=== PATIENT | female | born 1955 | race African-American/Black ===

== ENCOUNTER 2016-05-15 11:33 | Inpatient (IN) | payer OTHER ==
[2016-05-15 14:36] VITALS: BMI 29.2
--- NOTE | 2016-05-15 15:04 | HP ---
Admission [facility] - [facility] Chief Complaint: I drink occasionally and need to go to rehab. Allergies/Adverse Reactions: Allergies Allergy/AdvReac Type Severity Reaction Status Date / Time No Known Allergies Allergy Verified 05/15/16 14:51 History of Present Illness: pt is a 60yr old female with a history of alcohol abuse seeking rehab for treatment. Exam Limitations: No Limitations - Ebola screening Have you traveled outside of the country in the last 21 days: No Have you had contact with anyone from an Ebola affected area: No Have you been sick,other than usual withdrawal symptoms: No Do you have a fever: No - Review of Systems Constitutional: No Symptoms Reported EENT: reports: Other (vision changes d/t stroke d 4 yrs ago) Respiratory: reports: No Symptoms reported Cardiac: reports: No Symptoms Reported GI: reports: No Symptoms Reported : reports: No Symptoms Reported Musculoskeletal: reports: Back Pain, Joint Pain, Muscle Pain Integumentary: reports: No Symptoms Reported Neuro: reports: Tingling, Tremors Endocrine: reports: No Symptoms Reported, Flushing Hematology: reports: Anemia Psychiatric: reports: Judgement Intact, Mood/Affect Appropiate, Orientated x3, Agitated, Anxious Other Systems: Reviewed and Negative Patient History - Patient Medical History Hx Anemia: Yes Hx Asthma: No Hx Chronic Obstructive Pulmonary Disease (COPD): No Hx Cancer: No Hx Cardiac Disorders: Yes Hx Congestive Heart Failure: No Hx Hypertension: Yes Hx Hypercholesterolemia: Yes Hx Pacemaker: No HX Cerebrovascular Accident: Yes (LEFT SIDE AFFECTED) Hx Seizures: Yes (couple of months ago) Hx Dementia: No Hx Diabetes: No Hx Gastrointestinal Disorders: No Hx Liver Disease: No Hx Genitourinary Disorders: No Hx Sexually Transmitted Disorders: No Hx Renal Disease (ESRD): No Hx Thyroid Disease: No Hx Human Immunodeficiency Virus (HIV): No Hx Hepatitis C: No Hx Depression: No Hx Suicide Attempt: No Hx Bipolar Disorder: No Hx Schizophrenia: No - Patient Surgical History Past Surgical History: Yes Hx Neurologic Surgery: No Hx Cataract Extraction: No Hx Cardiac Surgery: No Hx Lung Surgery: No Hx Breast Surgery: No Hx Breast Biopsy: No Hx Abdominal Surgery: No Hx Appendectomy: No Hx Cholecystectomy: No Hx Genitourinary Surgery: No Hx Section: No Hx Orthopedic Surgery: No Hx Hysterectomy: No Other Surgical History: LEFT CAROTIC STENT 2013 Anesthesia Reaction: No - PPD History Previous Implant?: Yes Date: 12/01/15 PPD to be Administered?: No - Reproductive History Patient is a Female of Child Bearing Age (11 -55 yrs old): No - Smoking Cessation Smoking history: Current every day smoker Have you smoked in the past 12 months: Yes Aproximately how many cigarettes per day: 2 Hx Chewing Tobacco Use: No Initiated information on smoking cessation: Yes 'Breaking Loose' booklet given: 05/15/16 - Substance & Tx. History Hx Alcohol Use: Yes Substance Use Type: Alcohol Family Disease History - Family Disease History Family Disease History: Diabetes: Father, Heart Disease: Mother, CA: Brother ( THROAT ), Sister (LUNG ) Admission Physical Exam [facility] - Vital Signs Vital Signs: Vital Signs - 24 hr 05/15/16 14:35 Temperature 97.8 F Pulse Rate 86 Respiratory 18 Rate Blood Pressure 128/75 - Physical General Appearance: Yes: Appropriately Dressed, Moderate Distress, Tremorous, Irritable, Sweating, Anxious HEENTM: Yes: Hearing grossly Normal, Normal Voice Respiratory: Yes: Lungs Clear, Normal Breath Sounds, No Respiratory Distress Neck: Yes: No masses,lesions,Nodules Breast: Yes: Within Normal Limits Cardiology: Yes: Regular Rhythm, Regular Rate, S1, S2 Abdominal: Yes: Normal Bowel Sounds Genitourinary: Yes: Within Normal Limits Back: Yes: Normal Inspection Musculoskeletal: Yes: Gait Steady Extremities: Yes: Normal Capillary Refill, Normal Inspection Neurological: Yes: Fully Oriented, Alert, Other (left sided weakness) Integumentary: Yes: Within Normal Limits Lymphatic: Yes: Within Normal Limits Cleared for Admission [facility] - Detox or Rehab [facility] Level of Care: Medically Managed Claeared for Rehab Admission: Yes [facility] Breath Alcohol Content Breath Alcohol Content: 0 Urine Pregancy Test - Result Urine Test Results: Negative- NO Line Present Urine Drug Screen - Results Urine Drug Screen Results: THC-Marijuana, BAR-Barbiturates
[2016-05-15] MEDS ORDERED: guaiFENesin/D-METHORPHAN HB 10 ML UNIT-DOSE CUPS PO PRN (15:09)
[2016-05-15] MEDS ORDERED: MAG HYDROX/AL HYDROX/SIMETH 30 ML UNIT-DOSE CUP PO PRN (15:09)
[2016-05-15] MEDS ORDERED: LOPERAMIDE HCL 2 MG CAPSULE PO PRN (15:09)
[2016-05-15] MEDS ORDERED: NICOTINE POLACRILEX 4 MG GUM BUC PRN (15:09)
[2016-05-15] MEDS ORDERED: IBUPROFEN 400 MG TABLET (FP) PO PRN (15:09)
[2016-05-15] MEDS ORDERED: MAGNESIUM HYDROX 2400MG/30ML ORAL SUSPENSION 30 ML CUP PO PRN (15:09)
[2016-05-15] MEDS ORDERED: hydrOXYzine PAMOATE 50 MG CAPSULE (FP) PO PRN (15:09)
[2016-05-15] MEDS ORDERED: MAGNESIUM CITRATE 300 ML BOTTLE PO PRN (15:09)
[2016-05-15] MEDS ORDERED: MENTHOL/PHENOL 1 EACH UD MM PRN (15:09)
[2016-05-15 16:50] LABS: MCH 31.4 pg (25.7-33.7); MCHC 33.7 g/dl (32.0-36.0); MEAN CELL VOLUME 93.1 fl (80-96); MEAN PLT VOLUME 8.4 fl (7.5-11.1); PLATELET COUNT 326 K/MM3 (134-434); RDW 13.2 % (11.6-15.6); WHITE BLOOD COUNT 5.2 K/mm3 (4.0-10.0)
[2016-05-15 17:46] LABS: CALCIUM 8.9 mg/dL (8.5-10.1)
[2016-05-15 17:52] LABS: ALBUMIN 3.8 g/dl (3.4-5.0); ALK PHOS 113 U/L (45-117); ANION GAP 9 (8-16); BILIRUBIN,TOTAL 0.2 mg/dL (0.2-1.0); CO2 29 mmol/L (21-32); CREATININE 0.8 mg/dL (0.55-1.02); GLUCOSE,RANDOM 66 mg/dL (74-106); SGOT/AST 59 U/L (15-37); SGPT/ALT 45 U/L (12-78); TOT PROT 7.3 g/dl (6.4-8.2)
[2016-05-15] MEDS: NAPROXEN 500 MG TABLET (FP) PO SCH (21:36)
[2016-05-15] MEDS: PHENYTOIN NA EXTENDED 100 MG CAPSULE (FP) PO SCH (21:36)
[2016-05-15] MEDS: THIAMINE HCL 100 MG TABLET (FP) PO SCH (21:36)
[2016-05-16] MEDS: PHENYTOIN NA EXTENDED 100 MG CAPSULE (FP) PO SCH ×3 (06:23→21:41)
--- NOTE | 2016-05-16 08:38 | HP ---
Psychiatrist Admission - Data Date of interview: 05/16/16 Admission source: [facility] Identifying data: This is the second admission to [address] [place] [address] for this 60yr old female. Single. 6 grown children. She lives by herself in an apartment on [address]. Pt is on disability post stroke 4yrs ago. Medical History: PMHx: HTN, cerebral infarction (~2010), arthritis, hyperlipidemia. Psychiatric History: Pt was diagnosed with depression last year by her primary care doctor Dr. Dodd.No psychiatric treatment.No psychiatric admissions,no suicidal attempts. Physical/Sexual Abuse/Trauma History: denies Vital Signs: Vital Signs - 24 hr 05/15/16 05/16/16 05/16/16 14:35 00:30 03:30 Temperature 97.8 F Pulse Rate 86 Respiratory 18 18 18 Rate Blood Pressure 128/75 05/16/16 06:51 Temperature 98.0 F Pulse Rate 89 Respiratory 18 Rate Blood Pressure 119/79 Allergies/Adverse Reactions: Allergies Allergy/AdvReac Type Severity Reaction Status Date / Time No Known Allergies Allergy Verified 05/15/16 14:51 Date of last physical exam: 05/16/16 Concur with the findings of this exam: Yes - Substance Abuse/Tx History Hx Alcohol Use: Yes (reports drinking since 16 yo,3-4 days a week,vodka ) Hx Substance Use: Yes (marijuana on and off once a year) Substance Use Type: Alcohol, Marijuana Hx Substance Use Treatment: Yes (completed this program 2013) - Admission Criteria Previous failed treatment: Yes Poor recovery environment: Yes Comorbidities: Yes Lacks judgement: Yes Mental Status Exam - Mental Status Exam Alert and Oriented to: Time, Place, Person Cognitive Function: Grossly Intact Patient Appearance: Unkempt Mood: Sad, Anxious Affect: Mood Congruent, Labile Patient Behavior: Cooperative Speech Pattern: Clear Voice Loudness: Normal Thought Process: Goal Oriented Hallucinations: Denies Suicidal Ideation: Denies Homicidal Ideation: Denies Insight/Judgement: Fair Sleep: Well Appetite: Good Muscle strength/Tone: Normal Gait/Station: Other (gait instability) Psychiatric Findings - Problem List (Ranson 1, 2,3) (1) Chronic back pain Current Visit: Yes Status: Chronic Qualifiers: Back pain location: back pain in unspecified location Back pain laterality: left Qualified Code(s): M54.9 - Dorsalgia, unspecified; G89.29 - Other chronic pain (2) Hypertension Current Visit: Yes Status: Chronic Qualifiers: Hypertension type: essential hypertension Qualified Code(s): I10 - Essential (primary) hypertension (3) Nicotine dependence Current Visit: Yes Status: Chronic Qualifiers: Nicotine product type: cigarettes Substance use status: uncomplicated Qualified Code(s): F17.210 - Nicotine dependence, cigarettes, uncomplicated (4) Alcohol dependence Current Visit: Yes Status: Chronic (5) Hyperlipidemia Current Visit: Yes Status: Chronic (6) Cerebral infarct Current Visit: Yes Status: Inactive - Initial Treatment Plan Initial Treatment Plan: Will monitor progress.
[2016-05-16] MEDS ORDERED: PT OWN MED DRAWER 7, Y5N ONE ×2 (09:12→21:43)
[2016-05-16] MEDS: PRENATAL VITAMINS W/ FOLIC ACID TABLET (FP) PO SCH (09:26)
[2016-05-16] MEDS: NAPROXEN 500 MG TABLET (FP) PO SCH ×2 (09:26→21:41)
[2016-05-16] MEDS: TRIAMTERENE AND HCTZ - 37.5 MG/25 MG CAPSULE PO SCH (09:29)
[2016-05-16] MEDS ORDERED: METOPROLOL SUCCINATE 100 MG TAB.SR.24H (FP) PO SCH (10:00)
[2016-05-16] MEDS ORDERED: amLODIPine BESYLATE 10 MG TABLET (FP) PO SCH (10:00)
[2016-05-16 10:11] LABS: HIV 1 & 2 AB NEGATIVE; HIV 1 AGp24 NEGATIVE
[2016-05-16] MEDS: METHYL SALICYLATE/MENTHOL OINT 30 GM TUBE TP SCH ×2 (15:20→21:43)
[2016-05-16 16:25] LABS: URINE APPEARANCE CLOUDY; URINE BILIRUBIN NEGATIVE (NEGATIVE); URINE BLOOD NEGATIVE (NEGATIVE); URINE COLOR DKYELLOW; URINE GLUCOSE (UA) NEGATIVE (NEGATIVE); URINE KETONE NEGATIVE (NEGATIVE); URINE LEUK ESTERASE NEGATIVE (NEGATIVE); URINE NITRITE NEGATIVE (NEGATIVE); URINE PROTEIN NEGATIVE (NEGATIVE); URINE UROBILINOGEN NEGATIVE E.U./dl (0.2-1.0)
--- NOTE | 2016-05-16 16:42 | EKG ---
Test Reason : Blood Pressure : / mmHG Vent. Rate : 092 BPM Atrial Rate : 092 BPM P-R Int : 190 ms QRS Dur : 078 ms QT Int : 378 ms P-R-T Axes : 071 003 072 degrees QTc Int : 467 ms NORMAL SINUS RHYTHM NORMAL ECG WHEN COMPARED WITH ECG OF 22-MAR-2012 11:31, NO SIGNIFICANT CHANGE WAS FOUND Confirmed by MD JOY, MELIDA ([id number]) on 05/16/2016 4:42:35 PM Referred By: Confirmed By:MELIDA HAMILTON MD
[2016-05-16] MEDS: THIAMINE HCL 100 MG TABLET (FP) PO SCH (21:41)
[2016-05-17] MEDS: PHENYTOIN NA EXTENDED 100 MG CAPSULE (FP) PO SCH ×3 (06:22→21:33)
[2016-05-17] MEDS: METHYL SALICYLATE/MENTHOL OINT 30 GM TUBE TP SCH ×2 (10:13→21:34)
[2016-05-17] MEDS: TRIAMTERENE AND HCTZ - 37.5 MG/25 MG CAPSULE PO SCH (10:14)
[2016-05-17] MEDS ORDERED: PT OWN MED DRAWER 7, Y5N ONE ×2 (10:14→20:25)
[2016-05-17] MEDS: amLODIPine BESYLATE 5 MG TABLET (FP) PO SCH (10:15)
[2016-05-17] MEDS: NAPROXEN 500 MG TABLET (FP) PO SCH ×2 (10:15→21:32)
[2016-05-17] MEDS: METOPROLOL SUCCINATE 50 MG TAB.SR.24H (FP) PO SCH (10:15)
[2016-05-17] MEDS: PRENATAL VITAMINS W/ FOLIC ACID TABLET (FP) PO SCH (10:15)
[2016-05-17] MEDS: THIAMINE HCL 100 MG TABLET (FP) PO SCH (21:33)
[2016-05-18] MEDS: PHENYTOIN NA EXTENDED 100 MG CAPSULE (FP) PO SCH ×3 (06:34→21:27)
[2016-05-18] MEDS ORDERED: PT OWN MED DRAWER 7, Y5N ONE ×2 (08:29→20:35)
[2016-05-18] MEDS: METHYL SALICYLATE/MENTHOL OINT 30 GM TUBE TP SCH ×2 (09:54→21:28)
[2016-05-18] MEDS: PRENATAL VITAMINS W/ FOLIC ACID TABLET (FP) PO SCH (09:55)
[2016-05-18] MEDS: METOPROLOL SUCCINATE 50 MG TAB.SR.24H (FP) PO SCH (09:55)
[2016-05-18] MEDS: NAPROXEN 500 MG TABLET (FP) PO SCH ×2 (09:55→21:27)
[2016-05-18] MEDS: TRIAMTERENE AND HCTZ - 37.5 MG/25 MG CAPSULE PO SCH (09:55)
[2016-05-18] MEDS: amLODIPine BESYLATE 5 MG TABLET (FP) PO SCH (09:55)
[2016-05-18] MEDS: THIAMINE HCL 100 MG TABLET (FP) PO SCH (21:27)
[2016-05-18] MEDS: diphenhydrAMINE HCL 50 MG CAPSULE PO PRN (21:27)
[2016-05-19] MEDS: PHENYTOIN NA EXTENDED 100 MG CAPSULE (FP) PO SCH ×3 (06:37→21:42)
[2016-05-19] MEDS: METOPROLOL SUCCINATE 50 MG TAB.SR.24H (FP) PO SCH (10:23)
[2016-05-19] MEDS: NAPROXEN 500 MG TABLET (FP) PO SCH ×2 (10:23→21:42)
[2016-05-19] MEDS: PRENATAL VITAMINS W/ FOLIC ACID TABLET (FP) PO SCH (10:23)
[2016-05-19] MEDS: amLODIPine BESYLATE 5 MG TABLET (FP) PO SCH (10:23)
[2016-05-19] MEDS: METHYL SALICYLATE/MENTHOL OINT 30 GM TUBE TP SCH ×2 (10:24→21:43)
[2016-05-19] MEDS: TRIAMTERENE AND HCTZ - 37.5 MG/25 MG CAPSULE PO SCH (10:53)
[2016-05-19] MEDS: P-EPHED 60MG/TRIPROLIDI 2.5MG TABLET PO PRN (14:53)
[2016-05-19] MEDS: THIAMINE HCL 100 MG TABLET (FP) PO SCH (21:42)
[2016-05-20] MEDS: PHENYTOIN NA EXTENDED 100 MG CAPSULE (FP) PO SCH ×3 (06:44→21:40)
[2016-05-20] MEDS ORDERED: PT OWN MED DRAWER 7, Y5N ONE ×2 (08:41→21:42)
[2016-05-20] MEDS: METHYL SALICYLATE/MENTHOL OINT 30 GM TUBE TP SCH ×2 (10:34→21:42)
[2016-05-20] MEDS: METOPROLOL SUCCINATE 50 MG TAB.SR.24H (FP) PO SCH (10:35)
[2016-05-20] MEDS: NAPROXEN 500 MG TABLET (FP) PO SCH ×2 (10:35→21:40)
[2016-05-20] MEDS: amLODIPine BESYLATE 5 MG TABLET (FP) PO SCH (10:35)
[2016-05-20] MEDS: PRENATAL VITAMINS W/ FOLIC ACID TABLET (FP) PO SCH (10:35)
[2016-05-20] MEDS: TRIAMTERENE AND HCTZ - 37.5 MG/25 MG CAPSULE PO SCH (10:35)
[2016-05-20] MEDS: diphenhydrAMINE HCL 50 MG CAPSULE PO PRN (21:40)
[2016-05-20] MEDS: THIAMINE HCL 100 MG TABLET (FP) PO SCH (21:40)
[2016-05-21] MEDS: PHENYTOIN NA EXTENDED 100 MG CAPSULE (FP) PO SCH ×3 (06:42→21:38)
[2016-05-21] MEDS: METHYL SALICYLATE/MENTHOL OINT 30 GM TUBE TP SCH ×2 (10:37→21:37)
[2016-05-21] MEDS: amLODIPine BESYLATE 5 MG TABLET (FP) PO SCH (10:37)
[2016-05-21] MEDS: NAPROXEN 500 MG TABLET (FP) PO SCH ×2 (10:37→21:38)
[2016-05-21] MEDS: TRIAMTERENE AND HCTZ - 37.5 MG/25 MG CAPSULE PO SCH (10:37)
[2016-05-21] MEDS: METOPROLOL SUCCINATE 50 MG TAB.SR.24H (FP) PO SCH (10:38)
[2016-05-21] MEDS: PRENATAL VITAMINS W/ FOLIC ACID TABLET (FP) PO SCH (10:38)
[2016-05-21] MEDS ORDERED: PT OWN MED DRAWER 7, Y5N ONE (20:46)
[2016-05-21] MEDS: THIAMINE HCL 100 MG TABLET (FP) PO SCH (21:38)
[2016-05-22] MEDS: PHENYTOIN NA EXTENDED 100 MG CAPSULE (FP) PO SCH ×3 (06:34→21:26)
[2016-05-22] MEDS ORDERED: PT OWN MED DRAWER 7, Y5N ONE ×2 (08:40→20:28)
[2016-05-22] MEDS: METHYL SALICYLATE/MENTHOL OINT 30 GM TUBE TP SCH ×2 (10:35→21:26)
[2016-05-22] MEDS: PRENATAL VITAMINS W/ FOLIC ACID TABLET (FP) PO SCH (10:36)
[2016-05-22] MEDS: TRIAMTERENE AND HCTZ - 37.5 MG/25 MG CAPSULE PO SCH (10:36)
[2016-05-22] MEDS: amLODIPine BESYLATE 5 MG TABLET (FP) PO SCH (10:36)
[2016-05-22] MEDS: METOPROLOL SUCCINATE 50 MG TAB.SR.24H (FP) PO SCH (10:36)
[2016-05-22] MEDS: NAPROXEN 500 MG TABLET (FP) PO SCH ×2 (10:36→21:26)
[2016-05-22] MEDS: P-EPHED 60MG/TRIPROLIDI 2.5MG TABLET PO PRN (14:53)
[2016-05-22] MEDS: THIAMINE HCL 100 MG TABLET (FP) PO SCH (21:26)
[2016-05-23] MEDS: PHENYTOIN NA EXTENDED 100 MG CAPSULE (FP) PO SCH ×3 (07:17→21:31)
[2016-05-23] MEDS ORDERED: PT OWN MED DRAWER 7, Y5N ONE ×2 (10:20→19:50)
[2016-05-23] MEDS: TRIAMTERENE AND HCTZ - 37.5 MG/25 MG CAPSULE PO SCH (10:21)
[2016-05-23] MEDS: amLODIPine BESYLATE 5 MG TABLET (FP) PO SCH (10:21)
[2016-05-23] MEDS: PRENATAL VITAMINS W/ FOLIC ACID TABLET (FP) PO SCH (10:21)
[2016-05-23] MEDS: NAPROXEN 500 MG TABLET (FP) PO SCH ×2 (10:21→21:31)
[2016-05-23] MEDS: METOPROLOL SUCCINATE 50 MG TAB.SR.24H (FP) PO SCH (10:21)
[2016-05-23] MEDS: METHYL SALICYLATE/MENTHOL OINT 30 GM TUBE TP SCH ×2 (10:22→21:31)
[2016-05-23] MEDS: P-EPHED 60MG/TRIPROLIDI 2.5MG TABLET PO PRN (13:34)
[2016-05-23] MEDS: THIAMINE HCL 100 MG TABLET (FP) PO SCH (21:31)
[2016-05-24] MEDS: PHENYTOIN NA EXTENDED 100 MG CAPSULE (FP) PO SCH ×3 (07:06→21:47)
[2016-05-24] MEDS: PRENATAL VITAMINS W/ FOLIC ACID TABLET (FP) PO SCH (10:20)
[2016-05-24] MEDS: METHYL SALICYLATE/MENTHOL OINT 30 GM TUBE TP SCH ×2 (10:20→21:50)
[2016-05-24] MEDS: TRIAMTERENE AND HCTZ - 37.5 MG/25 MG CAPSULE PO SCH (10:20)
[2016-05-24] MEDS: amLODIPine BESYLATE 5 MG TABLET (FP) PO SCH (10:20)
[2016-05-24] MEDS: NAPROXEN 500 MG TABLET (FP) PO SCH ×2 (10:20→21:48)
[2016-05-24] MEDS: METOPROLOL SUCCINATE 50 MG TAB.SR.24H (FP) PO SCH (10:20)
[2016-05-24] MEDS: THIAMINE HCL 100 MG TABLET (FP) PO SCH (21:47)
[2016-05-24] MEDS ORDERED: PT OWN MED DRAWER 7, Y5N ONE (21:50)
[2016-05-25] MEDS: PHENYTOIN NA EXTENDED 100 MG CAPSULE (FP) PO SCH ×3 (07:03→21:32)
[2016-05-25] MEDS: amLODIPine BESYLATE 5 MG TABLET (FP) PO SCH (10:22)
[2016-05-25] MEDS: METOPROLOL SUCCINATE 50 MG TAB.SR.24H (FP) PO SCH (10:22)
[2016-05-25] MEDS: TRIAMTERENE AND HCTZ - 37.5 MG/25 MG CAPSULE PO SCH (10:22)
[2016-05-25] MEDS: NAPROXEN 500 MG TABLET (FP) PO SCH ×2 (10:22→21:31)
[2016-05-25] MEDS: PRENATAL VITAMINS W/ FOLIC ACID TABLET (FP) PO SCH (10:22)
[2016-05-25] MEDS: METHYL SALICYLATE/MENTHOL OINT 30 GM TUBE TP SCH ×2 (10:23→22:02)
[2016-05-25] MEDS: P-EPHED 60MG/TRIPROLIDI 2.5MG TABLET PO PRN (10:23)
[2016-05-25] MEDS: THIAMINE HCL 100 MG TABLET (FP) PO SCH (21:31)
[2016-05-25] MEDS ORDERED: PT OWN MED DRAWER 7, Y5N ONE (21:33)
[2016-05-26] MEDS: PHENYTOIN NA EXTENDED 100 MG CAPSULE (FP) PO SCH ×3 (06:39→21:22)
[2016-05-26] MEDS ORDERED: PT OWN MED DRAWER 7, Y5N ONE ×2 (08:55→20:17)
[2016-05-26] MEDS: NAPROXEN 500 MG TABLET (FP) PO SCH ×2 (09:12→21:22)
[2016-05-26] MEDS: METOPROLOL SUCCINATE 50 MG TAB.SR.24H (FP) PO SCH (10:33)
[2016-05-26] MEDS: METHYL SALICYLATE/MENTHOL OINT 30 GM TUBE TP SCH ×2 (10:33→21:22)
[2016-05-26] MEDS: PRENATAL VITAMINS W/ FOLIC ACID TABLET (FP) PO SCH (10:33)
[2016-05-26] MEDS: TRIAMTERENE AND HCTZ - 37.5 MG/25 MG CAPSULE PO SCH (10:34)
[2016-05-26] MEDS: amLODIPine BESYLATE 5 MG TABLET (FP) PO SCH (10:34)
[2016-05-26] MEDS: ACETAMINOPHEN 325 MG TABLET (FP) PO PRN (14:35)
[2016-05-26] MEDS ORDERED: CYCLOBENZAPRINE HCL 10 MG TABLET (FP) PO ONE (17:40)
--- NOTE | 2016-05-26 17:44 | PN ---
[facility] Progress Note Note: RECEIVED NURSE CALL PATIENT HAS 8/10 MOBILE PAIN SINCE EARLY TODAY, ABLE TO PARTICIPATE DAILY ROUTINE AND MEETING VITAL SIGNS 132/78, AP 73 18 TEMP 98.5, NO SIGNIFICANT ECG CHANGE FLEXERIL 10 MG X 1 CONTINUE REHAB
[2016-05-26] MEDS: THIAMINE HCL 100 MG TABLET (FP) PO SCH (21:22)
[2016-05-27] MEDS: PHENYTOIN NA EXTENDED 100 MG CAPSULE (FP) PO SCH ×3 (07:14→21:34)
[2016-05-27] MEDS: NAPROXEN 500 MG TABLET (FP) PO SCH ×2 (10:22→21:34)
[2016-05-27] MEDS: PRENATAL VITAMINS W/ FOLIC ACID TABLET (FP) PO SCH (10:22)
[2016-05-27] MEDS: METOPROLOL SUCCINATE 50 MG TAB.SR.24H (FP) PO SCH (10:22)
[2016-05-27] MEDS: TRIAMTERENE AND HCTZ - 37.5 MG/25 MG CAPSULE PO SCH (10:22)
[2016-05-27] MEDS: METHYL SALICYLATE/MENTHOL OINT 30 GM TUBE TP SCH ×2 (10:22→21:34)
[2016-05-27] MEDS: amLODIPine BESYLATE 5 MG TABLET (FP) PO SCH (10:22)
--- NOTE | 2016-05-27 11:07 | EKG ---
Test Reason : Blood Pressure : / mmHG Vent. Rate : 074 BPM Atrial Rate : 074 BPM P-R Int : 192 ms QRS Dur : 076 ms QT Int : 374 ms P-R-T Axes : 063 026 070 degrees QTc Int : 415 ms NORMAL SINUS RHYTHM NORMAL ECG WHEN COMPARED WITH ECG OF 15-MAY-2016 19:23, NO SIGNIFICANT CHANGE WAS FOUND Confirmed by MARIA ELENA MORENO MD ([id number]) on 05/27/2016 11:07:21 AM Referred By: Confirmed By:MARIA ELENA MORENO MD
[2016-05-27] MEDS: ACETAMINOPHEN 325 MG TABLET (FP) PO PRN (12:55)
--- NOTE | 2016-05-27 14:25 | PN ---
[facility] Progress Note Note: Laboratory Results - last 24 hr 05/27/16 07:00 Phenytoin 8.3 L Dilantin level is below therapeutic level P : dilantin 200mg stat
[2016-05-27] MEDS ORDERED: PHENYTOIN NA EXTENDED 100 MG CAPSULE (FP) PO ONE (14:53)
[2016-05-27] MEDS: CYCLOBENZAPRINE HCL 10 MG TABLET (FP) PO SCH ×2 (15:04→21:34)
[2016-05-27] MEDS ORDERED: PT OWN MED DRAWER 7, Y5N ONE (20:30)
[2016-05-27] MEDS: THIAMINE HCL 100 MG TABLET (FP) PO SCH (21:34)
[2016-05-28] MEDS: CYCLOBENZAPRINE HCL 10 MG TABLET (FP) PO SCH ×3 (06:27→21:32)
[2016-05-28] MEDS: PHENYTOIN NA EXTENDED 100 MG CAPSULE (FP) PO SCH ×3 (06:27→21:33)
[2016-05-28] MEDS: PRENATAL VITAMINS W/ FOLIC ACID TABLET (FP) PO SCH (11:02)
[2016-05-28] MEDS: amLODIPine BESYLATE 5 MG TABLET (FP) PO SCH (11:03)
[2016-05-28] MEDS: NAPROXEN 500 MG TABLET (FP) PO SCH ×2 (11:03→21:34)
[2016-05-28] MEDS: METHYL SALICYLATE/MENTHOL OINT 30 GM TUBE TP SCH ×2 (11:03→21:34)
[2016-05-28] MEDS: TRIAMTERENE AND HCTZ - 37.5 MG/25 MG CAPSULE PO SCH (11:03)
[2016-05-28] MEDS: METOPROLOL SUCCINATE 50 MG TAB.SR.24H (FP) PO SCH (11:03)
[2016-05-28] MEDS ORDERED: PT OWN MED DRAWER 7, Y5N ONE (11:04)
[2016-05-28] MEDS: diphenhydrAMINE HCL 50 MG CAPSULE PO PRN (21:33)
[2016-05-28] MEDS: THIAMINE HCL 100 MG TABLET (FP) PO SCH (21:33)
[2016-05-29] MEDS: CYCLOBENZAPRINE HCL 10 MG TABLET (FP) PO SCH ×3 (06:54→21:33)
[2016-05-29] MEDS: PHENYTOIN NA EXTENDED 100 MG CAPSULE (FP) PO SCH ×3 (06:54→21:33)
[2016-05-29] MEDS ORDERED: PT OWN MED DRAWER 7, Y5N ONE ×2 (08:38→21:36)
[2016-05-29] MEDS: PRENATAL VITAMINS W/ FOLIC ACID TABLET (FP) PO SCH (10:36)
[2016-05-29] MEDS: NAPROXEN 500 MG TABLET (FP) PO SCH ×2 (10:36→21:33)
[2016-05-29] MEDS: METHYL SALICYLATE/MENTHOL OINT 30 GM TUBE TP SCH ×2 (10:36→21:35)
[2016-05-29] MEDS: amLODIPine BESYLATE 5 MG TABLET (FP) PO SCH (10:37)
[2016-05-29] MEDS: TRIAMTERENE AND HCTZ - 37.5 MG/25 MG CAPSULE PO SCH (10:37)
[2016-05-29] MEDS: METOPROLOL SUCCINATE 50 MG TAB.SR.24H (FP) PO SCH (10:37)
[2016-05-29] MEDS: THIAMINE HCL 100 MG TABLET (FP) PO SCH (21:33)
[2016-05-30] MEDS: PHENYTOIN NA EXTENDED 100 MG CAPSULE (FP) PO SCH ×3 (06:58→21:40)
[2016-05-30] MEDS: CYCLOBENZAPRINE HCL 10 MG TABLET (FP) PO SCH ×3 (06:58→21:40)
[2016-05-30] MEDS ORDERED: PT OWN MED DRAWER 7, Y5N ONE ×2 (08:27→21:59)
[2016-05-30] MEDS: NAPROXEN 500 MG TABLET (FP) PO SCH ×2 (10:42→21:40)
[2016-05-30] MEDS: PRENATAL VITAMINS W/ FOLIC ACID TABLET (FP) PO SCH (10:42)
[2016-05-30] MEDS: METOPROLOL SUCCINATE 50 MG TAB.SR.24H (FP) PO SCH (10:42)
[2016-05-30] MEDS: TRIAMTERENE AND HCTZ - 37.5 MG/25 MG CAPSULE PO SCH (10:43)
[2016-05-30] MEDS: amLODIPine BESYLATE 5 MG TABLET (FP) PO SCH (10:43)
[2016-05-30] MEDS: METHYL SALICYLATE/MENTHOL OINT 30 GM TUBE TP SCH ×2 (10:44→21:41)
[2016-05-30] MEDS: ACETAMINOPHEN 325 MG TABLET (FP) PO PRN (13:12)
[2016-05-30] MEDS: THIAMINE HCL 100 MG TABLET (FP) PO SCH (21:41)
[2016-05-31] MEDS: CYCLOBENZAPRINE HCL 10 MG TABLET (FP) PO SCH ×3 (07:10→21:21)
[2016-05-31] MEDS: PHENYTOIN NA EXTENDED 100 MG CAPSULE (FP) PO SCH ×3 (07:10→21:21)
[2016-05-31] MEDS ORDERED: PT OWN MED DRAWER 7, Y5N ONE ×2 (08:36→20:16)
[2016-05-31] MEDS: METHYL SALICYLATE/MENTHOL OINT 30 GM TUBE TP SCH ×2 (10:04→21:22)
[2016-05-31] MEDS: TRIAMTERENE AND HCTZ - 37.5 MG/25 MG CAPSULE PO SCH (10:04)
[2016-05-31] MEDS: METOPROLOL SUCCINATE 50 MG TAB.SR.24H (FP) PO SCH (10:04)
[2016-05-31] MEDS: PRENATAL VITAMINS W/ FOLIC ACID TABLET (FP) PO SCH (10:04)
[2016-05-31] MEDS: amLODIPine BESYLATE 5 MG TABLET (FP) PO SCH (10:04)
[2016-05-31] MEDS: NAPROXEN 500 MG TABLET (FP) PO SCH ×2 (10:04→21:22)
[2016-05-31] MEDS: diphenhydrAMINE HCL 50 MG CAPSULE PO PRN (21:22)
[2016-05-31] MEDS: THIAMINE HCL 100 MG TABLET (FP) PO SCH (21:22)
[2016-06-01] MEDS: CYCLOBENZAPRINE HCL 10 MG TABLET (FP) PO SCH ×3 (07:11→21:24)
[2016-06-01] MEDS: PHENYTOIN NA EXTENDED 100 MG CAPSULE (FP) PO SCH ×3 (07:11→21:24)
[2016-06-01] MEDS: METHYL SALICYLATE/MENTHOL OINT 30 GM TUBE TP SCH ×2 (10:08→21:24)
[2016-06-01] MEDS: METOPROLOL SUCCINATE 50 MG TAB.SR.24H (FP) PO SCH (10:09)
[2016-06-01] MEDS: TRIAMTERENE AND HCTZ - 37.5 MG/25 MG CAPSULE PO SCH (10:09)
[2016-06-01] MEDS: NAPROXEN 500 MG TABLET (FP) PO SCH ×2 (10:10→21:24)
[2016-06-01] MEDS: PRENATAL VITAMINS W/ FOLIC ACID TABLET (FP) PO SCH (10:10)
[2016-06-01] MEDS: amLODIPine BESYLATE 5 MG TABLET (FP) PO SCH (10:10)
[2016-06-01] MEDS ORDERED: PT OWN MED DRAWER 7, Y5N ONE (20:10)
[2016-06-01] MEDS: THIAMINE HCL 100 MG TABLET (FP) PO SCH (21:24)
[2016-06-01] MEDS: diphenhydrAMINE HCL 50 MG CAPSULE PO PRN (21:26)
[2016-06-02] MEDS: CYCLOBENZAPRINE HCL 10 MG TABLET (FP) PO SCH ×3 (06:27→21:31)
[2016-06-02] MEDS: PHENYTOIN NA EXTENDED 100 MG CAPSULE (FP) PO SCH ×3 (06:27→21:31)
[2016-06-02] MEDS: PRENATAL VITAMINS W/ FOLIC ACID TABLET (FP) PO SCH (10:07)
[2016-06-02] MEDS: NAPROXEN 500 MG TABLET (FP) PO SCH ×2 (10:07→21:31)
[2016-06-02] MEDS: METHYL SALICYLATE/MENTHOL OINT 30 GM TUBE TP SCH ×2 (10:07→21:30)
[2016-06-02] MEDS: amLODIPine BESYLATE 5 MG TABLET (FP) PO SCH (10:08)
[2016-06-02] MEDS: TRIAMTERENE AND HCTZ - 37.5 MG/25 MG CAPSULE PO SCH (10:08)
[2016-06-02] MEDS: METOPROLOL SUCCINATE 50 MG TAB.SR.24H (FP) PO SCH (10:09)
[2016-06-02] MEDS: THIAMINE HCL 100 MG TABLET (FP) PO SCH (21:31)
[2016-06-03] MEDS: CYCLOBENZAPRINE HCL 10 MG TABLET (FP) PO SCH ×3 (06:33→21:21)
[2016-06-03] MEDS: PHENYTOIN NA EXTENDED 100 MG CAPSULE (FP) PO SCH ×3 (06:33→21:21)
[2016-06-03] MEDS: ACETAMINOPHEN 325 MG TABLET (FP) PO PRN (06:33)
[2016-06-03] MEDS: METOPROLOL SUCCINATE 50 MG TAB.SR.24H (FP) PO SCH (10:21)
[2016-06-03] MEDS: amLODIPine BESYLATE 5 MG TABLET (FP) PO SCH (10:21)
[2016-06-03] MEDS: METHYL SALICYLATE/MENTHOL OINT 30 GM TUBE TP SCH ×2 (10:21→21:20)
[2016-06-03] MEDS: TRIAMTERENE AND HCTZ - 37.5 MG/25 MG CAPSULE PO SCH (10:21)
[2016-06-03] MEDS: PRENATAL VITAMINS W/ FOLIC ACID TABLET (FP) PO SCH (10:21)
[2016-06-03] MEDS: NAPROXEN 500 MG TABLET (FP) PO SCH ×2 (10:21→21:21)
[2016-06-03] MEDS: THIAMINE HCL 100 MG TABLET (FP) PO SCH (21:21)
[2016-06-04] MEDS: PHENYTOIN NA EXTENDED 100 MG CAPSULE (FP) PO SCH ×3 (06:41→21:32)
[2016-06-04] MEDS: CYCLOBENZAPRINE HCL 10 MG TABLET (FP) PO SCH ×3 (06:41→21:32)
[2016-06-04] MEDS ORDERED: PT OWN MED DRAWER 7, Y5N ONE ×2 (08:55→21:32)
[2016-06-04] MEDS: TRIAMTERENE AND HCTZ - 37.5 MG/25 MG CAPSULE PO SCH (10:27)
[2016-06-04] MEDS: METOPROLOL SUCCINATE 50 MG TAB.SR.24H (FP) PO SCH (10:27)
[2016-06-04] MEDS: amLODIPine BESYLATE 5 MG TABLET (FP) PO SCH (10:28)
[2016-06-04] MEDS: PRENATAL VITAMINS W/ FOLIC ACID TABLET (FP) PO SCH (10:28)
[2016-06-04] MEDS: NAPROXEN 500 MG TABLET (FP) PO SCH ×2 (10:28→21:33)
[2016-06-04] MEDS: METHYL SALICYLATE/MENTHOL OINT 30 GM TUBE TP SCH ×2 (10:28→21:32)
[2016-06-04] MEDS: THIAMINE HCL 100 MG TABLET (FP) PO SCH (21:32)
[2016-06-05] MEDS: PHENYTOIN NA EXTENDED 100 MG CAPSULE (FP) PO SCH ×3 (06:35→21:39)
[2016-06-05] MEDS: CYCLOBENZAPRINE HCL 10 MG TABLET (FP) PO SCH ×3 (06:35→21:39)
[2016-06-05] MEDS: PRENATAL VITAMINS W/ FOLIC ACID TABLET (FP) PO SCH (10:58)
[2016-06-05] MEDS: METHYL SALICYLATE/MENTHOL OINT 30 GM TUBE TP SCH ×2 (10:58→21:41)
[2016-06-05] MEDS: NAPROXEN 500 MG TABLET (FP) PO SCH ×2 (10:58→21:39)
[2016-06-05] MEDS: METOPROLOL SUCCINATE 50 MG TAB.SR.24H (FP) PO SCH (10:58)
[2016-06-05] MEDS: TRIAMTERENE AND HCTZ - 37.5 MG/25 MG CAPSULE PO SCH (10:58)
[2016-06-05] MEDS: amLODIPine BESYLATE 5 MG TABLET (FP) PO SCH (10:58)
[2016-06-05] MEDS ORDERED: PT OWN MED DRAWER 7, Y5N ONE ×2 (11:00→19:58)
[2016-06-05] MEDS: ACETAMINOPHEN 325 MG TABLET (FP) PO PRN (13:27)
[2016-06-05] MEDS: THIAMINE HCL 100 MG TABLET (FP) PO SCH (21:39)
[2016-06-06] MEDS: PHENYTOIN NA EXTENDED 100 MG CAPSULE (FP) PO SCH ×3 (06:26→21:29)
[2016-06-06] MEDS: CYCLOBENZAPRINE HCL 10 MG TABLET (FP) PO SCH ×3 (06:26→21:29)
[2016-06-06] MEDS: amLODIPine BESYLATE 5 MG TABLET (FP) PO SCH ×2 (10:45→11:20)
[2016-06-06] MEDS: PRENATAL VITAMINS W/ FOLIC ACID TABLET (FP) PO SCH (10:45)
[2016-06-06] MEDS: METOPROLOL SUCCINATE 50 MG TAB.SR.24H (FP) PO SCH ×2 (10:45→10:47)
[2016-06-06] MEDS: TRIAMTERENE AND HCTZ - 37.5 MG/25 MG CAPSULE PO SCH (10:45)
[2016-06-06] MEDS: NAPROXEN 500 MG TABLET (FP) PO SCH ×2 (10:45→21:29)
[2016-06-06] MEDS: P-EPHED 60MG/TRIPROLIDI 2.5MG TABLET PO PRN (10:47)
[2016-06-06] MEDS: METHYL SALICYLATE/MENTHOL OINT 30 GM TUBE TP SCH ×2 (10:49→21:30)
[2016-06-06] MEDS ORDERED: PT OWN MED DRAWER 7, Y5N ONE (19:41)
[2016-06-06] MEDS: THIAMINE HCL 100 MG TABLET (FP) PO SCH (21:29)
[2016-06-06] MEDS: diphenhydrAMINE HCL 50 MG CAPSULE PO PRN (23:27)
[2016-06-07] MEDS: CYCLOBENZAPRINE HCL 10 MG TABLET (FP) PO SCH ×3 (06:54→21:23)
[2016-06-07] MEDS: PHENYTOIN NA EXTENDED 100 MG CAPSULE (FP) PO SCH ×3 (06:54→21:24)
[2016-06-07] MEDS: METHYL SALICYLATE/MENTHOL OINT 30 GM TUBE TP SCH ×2 (10:17→21:24)
[2016-06-07] MEDS: PRENATAL VITAMINS W/ FOLIC ACID TABLET (FP) PO SCH (10:17)
[2016-06-07] MEDS: NAPROXEN 500 MG TABLET (FP) PO SCH ×2 (10:17→21:23)
[2016-06-07] MEDS: TRIAMTERENE AND HCTZ - 37.5 MG/25 MG CAPSULE PO SCH (10:17)
[2016-06-07] MEDS: amLODIPine BESYLATE 5 MG TABLET (FP) PO SCH (10:17)
[2016-06-07] MEDS: METOPROLOL SUCCINATE 50 MG TAB.SR.24H (FP) PO SCH (10:17)
[2016-06-07] MEDS: P-EPHED 60MG/TRIPROLIDI 2.5MG TABLET PO PRN (10:18)
[2016-06-07] MEDS ORDERED: PT OWN MED DRAWER 7, Y5N ONE (20:24)
[2016-06-07] MEDS: THIAMINE HCL 100 MG TABLET (FP) PO SCH (21:24)
[2016-06-08] MEDS: CYCLOBENZAPRINE HCL 10 MG TABLET (FP) PO SCH ×3 (06:06→21:21)
[2016-06-08] MEDS: PHENYTOIN NA EXTENDED 100 MG CAPSULE (FP) PO SCH ×3 (06:06→21:21)
[2016-06-08] MEDS ORDERED: PT OWN MED DRAWER 7, Y5N ONE ×2 (08:46→20:23)
[2016-06-08] MEDS: PRENATAL VITAMINS W/ FOLIC ACID TABLET (FP) PO SCH (10:03)
[2016-06-08] MEDS: NAPROXEN 500 MG TABLET (FP) PO SCH ×2 (10:03→21:21)
[2016-06-08] MEDS: TRIAMTERENE AND HCTZ - 37.5 MG/25 MG CAPSULE PO SCH (10:03)
[2016-06-08] MEDS: amLODIPine BESYLATE 5 MG TABLET (FP) PO SCH (10:04)
[2016-06-08] MEDS: METOPROLOL SUCCINATE 50 MG TAB.SR.24H (FP) PO SCH (10:04)
[2016-06-08] MEDS: METHYL SALICYLATE/MENTHOL OINT 30 GM TUBE TP SCH ×2 (10:04→21:21)
[2016-06-08] MEDS: P-EPHED 60MG/TRIPROLIDI 2.5MG TABLET PO PRN (10:05)
[2016-06-08] MEDS: THIAMINE HCL 100 MG TABLET (FP) PO SCH (21:21)
[2016-06-09] MEDS: PHENYTOIN NA EXTENDED 100 MG CAPSULE (FP) PO SCH ×3 (06:44→21:28)
[2016-06-09] MEDS: CYCLOBENZAPRINE HCL 10 MG TABLET (FP) PO SCH ×3 (06:44→21:28)
[2016-06-09] MEDS ORDERED: PT OWN MED DRAWER 7, Y5N ONE (08:57)
[2016-06-09] MEDS: METHYL SALICYLATE/MENTHOL OINT 30 GM TUBE TP SCH ×2 (09:23→21:29)
[2016-06-09] MEDS: METOPROLOL SUCCINATE 50 MG TAB.SR.24H (FP) PO SCH (09:23)
[2016-06-09] MEDS: TRIAMTERENE AND HCTZ - 37.5 MG/25 MG CAPSULE PO SCH (09:23)
[2016-06-09] MEDS: NAPROXEN 500 MG TABLET (FP) PO SCH ×2 (09:23→21:28)
[2016-06-09] MEDS: amLODIPine BESYLATE 5 MG TABLET (FP) PO SCH (09:23)
[2016-06-09] MEDS: PRENATAL VITAMINS W/ FOLIC ACID TABLET (FP) PO SCH (09:24)
[2016-06-09] MEDS: THIAMINE HCL 100 MG TABLET (FP) PO SCH (21:28)
[2016-06-10] MEDS: PHENYTOIN NA EXTENDED 100 MG CAPSULE (FP) PO SCH ×3 (06:22→21:35)
[2016-06-10] MEDS: CYCLOBENZAPRINE HCL 10 MG TABLET (FP) PO SCH ×3 (06:22→21:35)
[2016-06-10] MEDS: P-EPHED 60MG/TRIPROLIDI 2.5MG TABLET PO PRN (09:52)
[2016-06-10] MEDS: METOPROLOL SUCCINATE 50 MG TAB.SR.24H (FP) PO SCH (09:53)
[2016-06-10] MEDS: PRENATAL VITAMINS W/ FOLIC ACID TABLET (FP) PO SCH (09:53)
[2016-06-10] MEDS: TRIAMTERENE AND HCTZ - 37.5 MG/25 MG CAPSULE PO SCH (09:53)
[2016-06-10] MEDS: METHYL SALICYLATE/MENTHOL OINT 30 GM TUBE TP SCH ×2 (09:53→21:36)
[2016-06-10] MEDS: amLODIPine BESYLATE 5 MG TABLET (FP) PO SCH (09:53)
[2016-06-10] MEDS: NAPROXEN 500 MG TABLET (FP) PO SCH ×2 (09:53→21:35)
[2016-06-10] MEDS ORDERED: PT OWN MED DRAWER 7, Y5N ONE (20:17)
[2016-06-10] MEDS: THIAMINE HCL 100 MG TABLET (FP) PO SCH (21:35)
[2016-06-11] MEDS: PHENYTOIN NA EXTENDED 100 MG CAPSULE (FP) PO SCH ×3 (06:47→21:32)
[2016-06-11] MEDS: CYCLOBENZAPRINE HCL 10 MG TABLET (FP) PO SCH ×3 (06:47→21:32)
[2016-06-11] MEDS ORDERED: PT OWN MED DRAWER 7, Y5N ONE (08:43)
[2016-06-11] MEDS: amLODIPine BESYLATE 5 MG TABLET (FP) PO SCH (10:00)
[2016-06-11] MEDS: METOPROLOL SUCCINATE 50 MG TAB.SR.24H (FP) PO SCH (10:00)
[2016-06-11] MEDS: PRENATAL VITAMINS W/ FOLIC ACID TABLET (FP) PO SCH (10:00)
[2016-06-11] MEDS: TRIAMTERENE AND HCTZ - 37.5 MG/25 MG CAPSULE PO SCH (10:00)
[2016-06-11] MEDS: METHYL SALICYLATE/MENTHOL OINT 30 GM TUBE TP SCH ×2 (10:01→21:33)
[2016-06-11] MEDS: NAPROXEN 500 MG TABLET (FP) PO SCH ×2 (10:01→21:32)
--- NOTE | 2016-06-11 10:50 | PN ---
[facility] Progress Note Note: PATIENT HAS ALL MEDICATIONS AT HOME
--- NOTE | 2016-06-11 16:12 | PN ---
Psychiatric Progress Note Vital Signs: Vital Signs Period Temp Pulse Resp BP Sys/Schultz Pulse Ox Last 24 Hr 97.8 F 81-82 18-18 112-114/70-72 Date of Session: 06/11/16 Chief Complaint:: Discharge visit HPI: Patient addressed Alcohol dependence with no psychiatric comorbidity. ROS: H/O Cerebral infarction,HTN,Hyperlipidemia. Current Medications: Active Medications Generic Name Dose Route Start Last Admin Trade Name Freq PRN Reason Stop Dose Admin Acetaminophen 650 mg 05/15/16 15:09 06/05/16 13:27 Tylenol - PO 650 mg Q4H PRN Administration PAIN Al Hydroxide/Mg Hydroxide 30 ml 05/15/16 15:09 Mylanta Oral Suspension - PO Q6H PRN DYSPEPSIA Amlodipine Besylate 5 mg 05/17/16 10:00 06/11/16 10:00 Norvasc - PO 5 mg DAILY FLORES Administration Cyclobenzaprine HCl 10 mg 05/27/16 14:45 06/11/16 13:16 Flexeril - PO 10 mg TID FLORES Administration Diphenhydramine HCl 50 mg 05/15/16 15:09 06/06/16 23:27 Benadryl - PO 50 mg HSMR1 PRN Administration INSOMNIA Eucalyptus/Menthol/Phenol/Sorbitol 1 each 05/15/16 15:09 Cepastat Lozenge - MM Q4H PRN SORE THROAT Guaifenesin 10 ml 05/15/16 15:09 Robitussin Dm - PO Q6H PRN COUGH Hydroxyzine Pamoate 50 mg 05/15/16 15:09 Vistaril - PO Q4H PRN AGITATION Loperamide HCl 4 mg 05/15/16 15:09 Imodium - PO Q6H PRN DIARRHEA Magnesium Citrate 300 ml 05/15/16 15:09 Citroma - PO Q48H PRN CONSTIPATION Magnesium Hydroxide 30 ml 05/15/16 15:09 Milk Of Magnesia - PO DAILY PRN CONSTIPATION Methyl Salicylate 1 applic 05/16/16 13:45 06/11/16 10:01 Jordan-Galindo - TP 1 applic BID FLORES Administration Metoprolol Succinate 50 mg 05/17/16 10:00 06/11/16 10:00 Toprol Xl - PO 50 mg DAILY FLORES Administration Naproxen 500 mg 05/15/16 22:00 06/11/16 10:01 Naprosyn - PO 500 mg BID FLORES Administration Nicotine Polacrilex 4 mg 05/15/16 15:09 Nicorette Gum - BUC Q2H PRN NICOTINE REPLACEMENT RX Phenytoin Sodium 100 mg 05/15/16 22:00 06/11/16 13:16 Dilantin - PO 100 mg TID FLORES Administration Multivit/Folic Acid/Iron 1 tab 05/16/16 10:00 06/11/16 10:00 Vitamins (Sjr) - PO 1 tab DAILY FLORES Administration Pseudoephedrine/Triprolidine 1 combo 05/15/16 15:09 06/10/16 09:52 Actifed - PO 1 combo TID PRN Administration NASAL CONGESTION Thiamine HCl 100 mg 05/15/16 22:00 06/10/16 21:35 Vitamin B1 - PO 100 mg HS FLORES Administration Triamterene/HCTZ 1 cap 05/16/16 10:00 06/11/16 10:00 Dyazide 25/37.5mg PO 1 cap DAILY FLORES Administration Current Side Effect: No Lab tests ordered: No Lab tests reviewed: Yes Provider note:: Patient will complete this program tomorrow 06/12/16.She has met her treatment goals and will continue to address her issues on outpatient basis.She identifies behaviors which contribute to relapse and skills,supports she can utilze to maintain recovery.Patient focuses on insights gained in treatment and concentrated on continuation of care on outpatient basis. Patient is stable for discharge tomorrow. Supportive therapy provided. Patient is stable for discharge tomorrow 06/12/16. Total face to face time:: 30 Mental Status Exam - Mental Status Exam Alert and Oriented to: Time, Place, Person Cognitive Function: Grossly Intact Patient Appearance: Well Groomed Mood: Hopeful, Euthymic Affect: Mood Congruent Patient Behavior: Cooperative Speech Pattern: Clear Voice Loudness: Normal Thought Process: Goal Oriented Thought Disorder: Not Present Hallucinations: Denies Suicidal Ideation: Denies Homicidal Ideation: Denies Insight/Judgement: Fair Sleep: Fair Appetite: Fair Muscle strength/Tone: Normal Gait/Station: Normal Psychiatric Treatment Plan - Problem List (1) Chronic back pain Qualifiers: Back pain location: back pain in unspecified location Back pain laterality: left Qualified Code(s): M54.9 - Dorsalgia, unspecified; G89.29 - Other chronic pain (2) Hypertension Qualifiers: Hypertension type: essential hypertension Qualified Code(s): I10 - Essential (primary) hypertension (3) Nicotine dependence Qualifiers: Nicotine product type: cigarettes Substance use status: uncomplicated Qualified Code(s): F17.210 - Nicotine dependence, cigarettes, uncomplicated
[2016-06-11] MEDS: THIAMINE HCL 100 MG TABLET (FP) PO SCH (21:33)
[2016-06-11] MEDS: diphenhydrAMINE HCL 50 MG CAPSULE PO PRN (21:33)
[2016-06-12] MEDS: PHENYTOIN NA EXTENDED 100 MG CAPSULE (FP) PO SCH (06:42)
[2016-06-12] MEDS: CYCLOBENZAPRINE HCL 10 MG TABLET (FP) PO SCH (06:42)
[2016-06-12 07:27] VITALS: TEMP 97.3
[2016-06-12] MEDS ORDERED: PT OWN MED DRAWER 7, Y5N ONE (08:58)
[2016-06-12 09:19] VITALS: BP 114/71; PULSE 88
[2016-06-12] MEDS: TRIAMTERENE AND HCTZ - 37.5 MG/25 MG CAPSULE PO SCH (09:21)
[2016-06-12] MEDS: PRENATAL VITAMINS W/ FOLIC ACID TABLET (FP) PO SCH (09:21)
[2016-06-12] MEDS: NAPROXEN 500 MG TABLET (FP) PO SCH (09:21)
[2016-06-12] MEDS: METHYL SALICYLATE/MENTHOL OINT 30 GM TUBE TP SCH (09:21)
[2016-06-12] MEDS: amLODIPine BESYLATE 5 MG TABLET (FP) PO SCH (09:21)
[2016-06-12] MEDS: METOPROLOL SUCCINATE 50 MG TAB.SR.24H (FP) PO SCH (09:23)
== END 2016-06-12 09:25 | disposition home or self-care (01) | DRG 772 ==
LOC: YASAS 11:33 → Y3E 14:57
PROVIDERS: ADMIT Psychiatry & Neurology Psychiatry; ATTEND Psychiatry & Neurology Psychiatry
PROC: HZ42ZZZ Group Counseling for Substance Abuse Treatment, Cognitive-Behavioral (ICD-10-PCS; principal; 2016-05-15)
DX: F10.20 Alcohol dependence, uncomplicated (principal); F17.210 Nicotine dependence, cigarettes, uncomplicated; E78.5 Hyperlipidemia, unspecified; M54.9 Dorsalgia, unspecified; G89.29 Other chronic pain; I10 Essential (primary) hypertension; G40.909 Epilepsy, unspecified, not intractable, without status epilepticus; Z86.73 Personal history of transient ischemic attack (TIA), and cerebral infarction without residual deficits; Z86.2 Personal history of diseases of the blood and blood-forming organs and certain disorders involving the immune mechanism; Z95.5 Presence of coronary angioplasty implant and graft
CPT/HCPCS: 36415; 80053; 80185; 81003; 85027; 86593; 87389; 93005; 93010

== ENCOUNTER 2020-07-15 11:41 | Inpatient (IN) | payer OTHER ==
[2020-07-15 12:05] VITALS: BMI 29.9
[2020-07-15] MEDS ORDERED: ACETAMINOPHEN 500 MG TABLET (FP) PO ONE (12:47)
[2020-07-15] MEDS ORDERED: LORazepam 2 MG/ML SDV VIAL IVPUSH ONE (12:47)
[2020-07-15] MEDS ORDERED: ACETAMINOPHEN 325 MG TABLET (FP) ONE (13:14)
[2020-07-15] MEDS ORDERED: LORazepam 2 MG/ML SDV VIAL ONE (13:16)
[2020-07-15 13:22] LABS: BASO % 0.7 % (0-2.0); EOS % 1.5 % (0-4.5); HEMATOCRIT 35.1 % (32.4-45.2); HEMOGLOBIN 12.1 GM/dL (10.7-15.3); LYMPH % 27.7 % (8-40); MCH 33.3 pg (25.7-33.7); MCHC 34.5 g/dl (32.0-36.0); MEAN CELL VOLUME 96.5 fl (80-96); MEAN PLT VOLUME 8.2 fl (7.5-11.1); MONO % 10.2 % (3.8-10.2); NEUT % 59.9 % (42.8-82.8); PLATELET COUNT 270 K/MM3 (134-434); RBC 3.63 M/mm3 (3.60-5.2); RDW 13.4 % (11.6-15.6); WHITE BLOOD COUNT 6.1 K/mm3 (4.0-10.0)
[2020-07-15 13:38] LABS: CHLORIDE 106 mmol/L (98-107); SODIUM 139 mmol/L (136-145)
[2020-07-15 13:42] LABS: ALBUMIN 3.4 g/dl (3.4-5.0); ANION GAP 4 MMOL/L (8-16); BLOOD UREA NITROGEN 11.1 mg/dL (7-18); CALCIUM 9.1 mg/dL (8.5-10.1); CO2 29 mmol/L (21-32); GLUCOSE,RANDOM 93 mg/dL (74-106)
[2020-07-15 13:45] LABS: SGOT/AST 40 U/L (15-37); SGPT/ALT 45 U/L (13-61)
[2020-07-15 13:46] LABS: CREATININE 0.8 mg/dL (0.55-1.3)
[2020-07-15 13:47] LABS: BILIRUBIN,TOTAL 0.4 mg/dL (0.2-1); TOT PROT 7.3 g/dl (6.4-8.2)
[2020-07-15 13:48] LABS: ALK PHOS 155 U/L (45-117)
[2020-07-15 14:26] LABS: INR 0.91 (0.83-1.09)
[2020-07-15 14:28] LABS: ACTIVATED PTT 33.1 SECONDS (25.2-36.5)
[2020-07-15] MEDS ORDERED: ASPIRIN 325 MG TABLET PO ONE (14:52)
[2020-07-15] MEDS ORDERED: ASPIRIN 81 MG CHEWABLE TABLETS PO ONE (14:52)
[2020-07-15] MEDS ORDERED: ASPIRIN 81 MG CHEWABLE TABLETS ONE (15:07)
[2020-07-15] MEDS: PHENYTOIN NA EXTENDED 100 MG CAPSULE (FP) PO SCH (21:55)
[2020-07-15] MEDS: ACETAMINOPHEN 325 MG TABLET (FP) PO PRN (23:15)
[2020-07-16] MEDS: PHENYTOIN NA EXTENDED 100 MG CAPSULE (FP) PO SCH ×3 (06:08→21:19)
[2020-07-16 07:47] LABS: BASO % 0.4 % (0-2.0); EOS % 1.9 % (0-4.5); HEMATOCRIT 31.5 % (32.4-45.2); LYMPH % 43.9 % (8-40); MCH 33.1 pg (25.7-33.7); MCHC 34.8 g/dl (32.0-36.0); MEAN CELL VOLUME 94.9 fl (80-96); MEAN PLT VOLUME 8.7 fl (7.5-11.1); MONO % 11.8 % (3.8-10.2); PLATELET COUNT 254 K/MM3 (134-434); RBC 3.32 M/mm3 (3.60-5.2); RDW 13.1 % (11.6-15.6); WHITE BLOOD COUNT 4.2 K/mm3 (4.0-10.0)
[2020-07-16] MEDS: ACETAMINOPHEN 325 MG TABLET (FP) PO PRN ×2 (07:51→21:17)
[2020-07-16 08:16] LABS: ALBUMIN 3.1 g/dl (3.4-5.0); BLOOD UREA NITROGEN 12.7 mg/dL (7-18); CALCIUM 8.7 mg/dL (8.5-10.1)
[2020-07-16 08:19] LABS: BILIRUBIN,TOTAL 0.3 mg/dL (0.2-1); CREATININE 0.8 mg/dL (0.55-1.3); TOT PROT 6.6 g/dl (6.4-8.2)
[2020-07-16] MEDS: amLODIPine BESYLATE 10 MG TABLET (FP) PO SCH (09:08)
[2020-07-16] MEDS: ASPIRIN 81 MG CHEWABLE TABLETS PO SCH (09:08)
[2020-07-16] MEDS ORDERED: levETIRAcetam 250 MG TABLET PO SCH (22:15)
[2020-07-16] MEDS: levETIRAcetam 500 MG TABLET (FP) PO SCH (22:57)
[2020-07-16] MEDS: PRAMIPEXOLE DIHYDROCHLORIDE 0.25 MG TABLET PO SCH (22:58)
[2020-07-17 09:08] LABS: URINE APPEARANCE CLEAR; URINE BILIRUBIN NEGATIVE (NEGATIVE); URINE COLOR YELLOW; URINE GLUCOSE (UA) NEGATIVE (NEGATIVE); URINE KETONE NEGATIVE (NEGATIVE); URINE LEUK ESTERASE NEGATIVE (NEGATIVE); URINE NITRITE NEGATIVE (NEGATIVE); URINE PROTEIN NEGATIVE (NEGATIVE); URINE UROBILINOGEN 0.2 mg/dL (0.2-1.0)
[2020-07-17] MEDS: levETIRAcetam 500 MG TABLET (FP) PO SCH ×2 (09:20→21:18)
[2020-07-17] MEDS: amLODIPine BESYLATE 10 MG TABLET (FP) PO SCH (09:21)
[2020-07-17] MEDS: ASPIRIN 81 MG CHEWABLE TABLETS PO SCH (09:21)
[2020-07-17] MEDS ORDERED: PHENYTOIN NA EXTENDED 100 MG CAPSULE (FP) PO SCH (10:00)
[2020-07-17] MEDS ORDERED: cefTRIAXone SODIUM 1 GM VIAL ONE (13:54)
[2020-07-17] MEDS ORDERED: DEXTROSE 5%-WATER - 50 ML IVPB ONE (13:54)
[2020-07-17] MEDS: CEFTRIAXONE 1 GM in DEXTROSE 5%-WATER - 50 ML IVPB SCH (14:07)
[2020-07-17] MEDS: ACETAMINOPHEN 325 MG TABLET (FP) PO PRN (20:30)
[2020-07-17] MEDS: ATORVASTATIN CA 20 MG TABLET (FP) PO SCH (21:17)
[2020-07-17] MEDS: PRAMIPEXOLE DIHYDROCHLORIDE 0.25 MG TABLET PO SCH (21:18)
[2020-07-18] MEDS ORDERED: DEXTROSE 5%-WATER - 50 ML IVPB ONE (08:16)
[2020-07-18] MEDS ORDERED: cefTRIAXone SODIUM 1 GM VIAL ONE (08:16)
[2020-07-18] MEDS: ASPIRIN 81 MG CHEWABLE TABLETS PO SCH (09:59)
[2020-07-18] MEDS: amLODIPine BESYLATE 10 MG TABLET (FP) PO SCH (10:02)
[2020-07-18] MEDS: CEFTRIAXONE 1 GM in DEXTROSE 5%-WATER - 50 ML IVPB SCH (10:03)
[2020-07-18] MEDS: levETIRAcetam 500 MG TABLET (FP) PO SCH ×2 (10:05→21:24)
[2020-07-18] MEDS: ATORVASTATIN CA 20 MG TABLET (FP) PO SCH (21:24)
[2020-07-18] MEDS: PRAMIPEXOLE DIHYDROCHLORIDE 0.25 MG TABLET PO SCH (21:24)
[2020-07-18] MEDS: ACETAMINOPHEN 325 MG TABLET (FP) PO PRN (21:29)
[2020-07-19] MEDS ORDERED: cefTRIAXone SODIUM 1 GM VIAL ONE (09:28)
[2020-07-19] MEDS ORDERED: DEXTROSE 5%-WATER - 50 ML IVPB ONE (09:29)
[2020-07-19] MEDS: amLODIPine BESYLATE 10 MG TABLET (FP) PO SCH (09:51)
[2020-07-19] MEDS: levETIRAcetam 500 MG TABLET (FP) PO SCH ×2 (09:51→21:58)
[2020-07-19] MEDS: ASPIRIN 81 MG CHEWABLE TABLETS PO SCH (09:51)
[2020-07-19] MEDS: CEFTRIAXONE 1 GM in DEXTROSE 5%-WATER - 50 ML IVPB SCH (09:53)
[2020-07-19] MEDS: PRAMIPEXOLE DIHYDROCHLORIDE 0.25 MG TABLET PO SCH (21:58)
[2020-07-19] MEDS: ACETAMINOPHEN 325 MG TABLET (FP) PO PRN (21:58)
[2020-07-19] MEDS: HEPARIN NA (PORCINE) 5,000 UNITS/ML 1ML VIAL SQ SCH (21:58)
[2020-07-19] MEDS: ATORVASTATIN CA 20 MG TABLET (FP) PO SCH (21:58)
[2020-07-20] MEDS: levETIRAcetam 500 MG TABLET (FP) PO SCH ×2 (10:43→21:34)
[2020-07-20] MEDS: HEPARIN NA (PORCINE) 5,000 UNITS/ML 1ML VIAL SQ SCH ×4 (10:44→21:42)
[2020-07-20] MEDS: amLODIPine BESYLATE 10 MG TABLET (FP) PO SCH (10:44)
[2020-07-20] MEDS: ASPIRIN 81 MG CHEWABLE TABLETS PO SCH (10:44)
[2020-07-20] MEDS: ACETAMINOPHEN 325 MG TABLET (FP) PO PRN (15:27)
[2020-07-20] MEDS: PRAMIPEXOLE DIHYDROCHLORIDE 0.25 MG TABLET PO SCH (21:35)
[2020-07-20] MEDS: ATORVASTATIN CA 20 MG TABLET (FP) PO SCH (21:35)
[2020-07-21] MEDS: levETIRAcetam 500 MG TABLET (FP) PO SCH ×2 (09:22→22:14)
[2020-07-21] MEDS: ASPIRIN 81 MG CHEWABLE TABLETS PO SCH (09:23)
[2020-07-21] MEDS: HEPARIN NA (PORCINE) 5,000 UNITS/ML 1ML VIAL SQ SCH ×2 (09:23→22:13)
[2020-07-21] MEDS: amLODIPine BESYLATE 10 MG TABLET (FP) PO SCH (09:23)
[2020-07-21] MEDS: PRAMIPEXOLE DIHYDROCHLORIDE 0.25 MG TABLET PO SCH (22:12)
[2020-07-21] MEDS: ATORVASTATIN CA 20 MG TABLET (FP) PO SCH (22:12)
[2020-07-21] MEDS: ACETAMINOPHEN 325 MG TABLET (FP) PO PRN (22:15)
[2020-07-22] MEDS: levETIRAcetam 500 MG TABLET (FP) PO SCH ×2 (09:45→21:40)
[2020-07-22] MEDS: amLODIPine BESYLATE 10 MG TABLET (FP) PO SCH (09:45)
[2020-07-22] MEDS: HEPARIN NA (PORCINE) 5,000 UNITS/ML 1ML VIAL SQ SCH ×2 (09:45→21:38)
[2020-07-22] MEDS: ASPIRIN 81 MG CHEWABLE TABLETS PO SCH (09:45)
[2020-07-22] MEDS ORDERED: POLYETHYLENE GLYCOL 3350 119 GM BTL PO PRN (14:28)
[2020-07-22] MEDS: ACETAMINOPHEN 325 MG TABLET (FP) PO PRN (19:21)
[2020-07-22] MEDS: ATORVASTATIN CA 20 MG TABLET (FP) PO SCH (21:40)
[2020-07-22] MEDS: PRAMIPEXOLE DIHYDROCHLORIDE 0.25 MG TABLET PO SCH (21:40)
[2020-07-23] MEDS: amLODIPine BESYLATE 10 MG TABLET (FP) PO SCH (09:47)
[2020-07-23] MEDS: levETIRAcetam 500 MG TABLET (FP) PO SCH ×2 (09:50→22:25)
[2020-07-23] MEDS: ASPIRIN 81 MG CHEWABLE TABLETS PO SCH (09:51)
[2020-07-23] MEDS: HEPARIN NA (PORCINE) 5,000 UNITS/ML 1ML VIAL SQ SCH ×4 (09:52→22:29)
[2020-07-23] MEDS: ACETAMINOPHEN 325 MG TABLET (FP) PO PRN (14:38)
[2020-07-23] MEDS: PRAMIPEXOLE DIHYDROCHLORIDE 0.25 MG TABLET PO SCH (22:25)
[2020-07-23] MEDS: ATORVASTATIN CA 20 MG TABLET (FP) PO SCH (22:26)
[2020-07-24] MEDS: amLODIPine BESYLATE 10 MG TABLET (FP) PO SCH (09:19)
[2020-07-24] MEDS: levETIRAcetam 500 MG TABLET (FP) PO SCH ×2 (09:20→21:36)
[2020-07-24] MEDS: HEPARIN NA (PORCINE) 5,000 UNITS/ML 1ML VIAL SQ SCH ×3 (09:20→21:40)
[2020-07-24] MEDS: ASPIRIN 81 MG CHEWABLE TABLETS PO SCH (09:20)
[2020-07-24] MEDS: ACETAMINOPHEN 325 MG TABLET (FP) PO PRN (18:00)
[2020-07-24] MEDS: PRAMIPEXOLE DIHYDROCHLORIDE 0.25 MG TABLET PO SCH (21:36)
[2020-07-24] MEDS: ATORVASTATIN CA 20 MG TABLET (FP) PO SCH (21:36)
[2020-07-25] MEDS: ASPIRIN 81 MG CHEWABLE TABLETS PO SCH (09:13)
[2020-07-25] MEDS: levETIRAcetam 500 MG TABLET (FP) PO SCH (09:13)
[2020-07-25] MEDS: amLODIPine BESYLATE 10 MG TABLET (FP) PO SCH (09:13)
[2020-07-25] MEDS: HEPARIN NA (PORCINE) 5,000 UNITS/ML 1ML VIAL SQ SCH (09:14)
[2020-07-25 16:36] VITALS: BP 114/73; PULSE 78; TEMP 98.7
== END 2020-07-25 18:11 | disposition home or self-care (01) | DRG 58 ==
LOC: JER 11:41 → JERBED 14:51 → J4W 18:45 → J7W 07-22 18:17
PROVIDERS: ADMIT Internal Medicine; ATTEND Internal Medicine
DX: I69.398 Other sequelae of cerebral infarction (principal); G93.89 Other specified disorders of brain; I65.21 Occlusion and stenosis of right carotid artery; I69.354 Hemiplegia and hemiparesis following cerebral infarction affecting left non-dominant side; D64.9 Anemia, unspecified; R42 Dizziness and giddiness; I10 Essential (primary) hypertension; E78.5 Hyperlipidemia, unspecified; F32.9 Major depressive disorder, single episode, unspecified; F17.210 Nicotine dependence, cigarettes, uncomplicated; I25.10 Atherosclerotic heart disease of native coronary artery without angina pectoris; G25.81 Restless legs syndrome; G43.909 Migraine, unspecified, not intractable, without status migrainosus; G40.909 Epilepsy, unspecified, not intractable, without status epilepticus; I73.9 Peripheral vascular disease, unspecified; M25.512 Pain in left shoulder
CPT/HCPCS: 36415; 70450-TC; 70496-TC; 70498-TC; 70551-TC; 71045-TC-FY; 72125-TC; 80053; 80061; 80177; 80185; 81003; 82550; 83721; 84484; 85025; 85610; 85730; 86850; 86900; 86901; 87086; 93005; 93010; 93880-TC; 93922; 93925-TC; 93970-TC; 97116-GP; 97162-GP; 99285-25; C9803; J1644; U0003; U0005

== ENCOUNTER 2021-11-27 11:50 | Observation (INO) | payer OTHER ==
[2021-11-27] MEDS: SODIUM CHLORIDE 1,000 ML IV SCH ×2 (12:08→17:08)
[2021-11-27 13:29] LABS: BASO % 0.9 % (0-2.0); EOS % 1.9 % (0-4.5); HEMATOCRIT 35.1 % (32.4-45.2); HEMOGLOBIN 11.4 GM/dL (10.7-15.3); LYMPH % 31.2 % (8-40); MCH 29.4 pg (25.7-33.7); MCHC 32.6 g/dl (32.0-36.0); MEAN CELL VOLUME 90.5 fl (80-96); MEAN PLT VOLUME 8.3 fl (7.5-11.1); MONO % 10.5 % (3.8-10.2); NEUT % 55.5 % (42.8-82.8); PLATELET COUNT 415 10^3/uL (134-434); RBC 3.88 M/mm3 (3.60-5.2); WHITE BLOOD COUNT 5.3 K/mm3 (4.0-10.0)
[2021-11-27 13:47] LABS: CHLORIDE 105 mmol/L (98-107); SODIUM 139 mmol/L (136-145)
[2021-11-27 13:49] LABS: CALCIUM 9.5 mg/dL (8.5-10.1)
[2021-11-27 13:50] LABS: ALBUMIN 3.7 g/dl (3.4-5.0); ANION GAP 9 MMOL/L (8-16); CO2 25 mmol/L (21-32)
[2021-11-27 13:51] LABS: BLOOD UREA NITROGEN 18.2 mg/dL (7-18); GLUCOSE,RANDOM 81 mg/dL (74-106)
[2021-11-27 13:53] LABS: CREATININE 0.8 mg/dL (0.55-1.3); SGOT/AST 40 U/L (15-37); SGPT/ALT 33 U/L (13-61)
[2021-11-27 13:54] LABS: CHOLESTEROL 230 mg/dL (50-200)
[2021-11-27 13:55] LABS: TOT PROT 8.1 g/dl (6.4-8.2); TRIGLYCERIDES 259 mg/dL (0-150)
[2021-11-27 13:56] LABS: BILIRUBIN,TOTAL 0.4 mg/dL (0.2-1); LDL CHOLESTEROL (ONLY SJRH) 96 mg/dL (5-100)
[2021-11-27 13:57] LABS: ALK PHOS 140 U/L (45-117); HDL CHOLESTEROL 115 mg/dL (40-60)
[2021-11-27 14:50] LABS: PH,URINE 5.5 (5.0-8.0); URINE APPEARANCE CLEAR; URINE BILIRUBIN NEGATIVE (NEGATIVE); URINE COLOR YELLOW; URINE GLUCOSE (UA) NEGATIVE (NEGATIVE); URINE KETONE NEGATIVE (NEGATIVE); URINE LEUK ESTERASE NEGATIVE (NEGATIVE); URINE NITRITE NEGATIVE (NEGATIVE); URINE PROTEIN NEGATIVE (NEGATIVE); URINE UROBILINOGEN 0.2 mg/dL (0.2-1.0)
[2021-11-27] MEDS ORDERED: CEFTRIAXONE 1 GM/50 ML BAG ONE (21:09)
[2021-11-27] MEDS: CEFTRIAXONE 1 GM in DEXTROSE 5%-WATER - 50 ML IVPB SCH (21:23)
[2021-11-27] MEDS ORDERED: ATORVASTATIN CA 40 MG TABLET (FP) ONE (21:34)
[2021-11-27] MEDS: PRAMIPEXOLE DIHYDROCHLORIDE 0.25 MG TABLET PO SCH (21:40)
[2021-11-27] MEDS: ATORVASTATIN CA 40 MG TABLET (FP) PO SCH (21:40)
[2021-11-28 07:31] LABS: BASO % 1.4 % (0-2.0); EOS % 1.4 % (0-4.5); HEMATOCRIT 33.1 % (32.4-45.2); HEMOGLOBIN 11.2 GM/dL (10.7-15.3); LYMPH % 29.2 % (8-40); MCH 30.5 pg (25.7-33.7); MCHC 33.9 g/dl (32.0-36.0); MEAN CELL VOLUME 89.9 fl (80-96); MONO % 9.1 % (3.8-10.2); NEUT % 58.9 % (42.8-82.8); PLATELET COUNT 324 10^3/uL (134-434); RBC 3.68 M/mm3 (3.60-5.2); RDW 14.6 % (11.6-15.6); WHITE BLOOD COUNT 5.7 K/mm3 (4.0-10.0)
[2021-11-28 07:56] LABS: CALCIUM 9.5 mg/dL (8.5-10.1)
[2021-11-28 07:57] LABS: ALBUMIN 3.4 g/dl (3.4-5.0); BLOOD UREA NITROGEN 16.5 mg/dL (7-18)
[2021-11-28 08:00] LABS: CREATININE 0.7 mg/dL (0.55-1.3)
[2021-11-28 08:02] LABS: BILIRUBIN,TOTAL 0.2 mg/dL (0.2-1); TOT PROT 7.4 g/dl (6.4-8.2)
[2021-11-28] MEDS ORDERED: amLODIPine BESYLATE 10 MG TABLET (FP) ONE (09:21)
[2021-11-28] MEDS ORDERED: ASPIRIN 81 MG CHEWABLE TABLETS ONE (09:22)
[2021-11-28] MEDS ORDERED: CEFTRIAXONE 1 GM/50 ML BAG ONE (09:22)
[2021-11-28] MEDS: CEFTRIAXONE 1 GM in DEXTROSE 5%-WATER - 50 ML IVPB SCH (09:31)
[2021-11-28] MEDS: amLODIPine BESYLATE 10 MG TABLET (FP) PO SCH (09:31)
[2021-11-28] MEDS: ASPIRIN 81 MG CHEWABLE TABLETS PO SCH (09:31)
[2021-11-28] MEDS ORDERED: levETIRAcetam XR 750 MG TAB PO SCH (10:00)
[2021-11-28 11:34] VITALS: RESP 18
[2021-11-28] MEDS: SODIUM CHLORIDE 1,000 ML IV SCH ×2 (11:45→17:59)
[2021-11-28 15:33] VITALS: BMI 26.0
[2021-11-28] MEDS ORDERED: PHENYTOIN 50 MG TAB.CHEW PO SCH (16:00)
[2021-11-28] MEDS: GABAPENTIN 100 MG CAPSULE PO SCH ×2 (17:25→21:20)
[2021-11-28] MEDS ORDERED: PNEUMOC 20-VAL CONJ-DIP CRM/PF 0.5 ML SYRINGE IM ONE (17:30)
[2021-11-28] MEDS ORDERED: ACETAMINOPHEN 325 MG TABLET (FP) PO PRN (20:41)
[2021-11-28] MEDS: ATORVASTATIN CA 40 MG TABLET (FP) PO SCH (21:20)
[2021-11-28] MEDS: PRAMIPEXOLE DIHYDROCHLORIDE 0.25 MG TABLET PO SCH (21:20)
[2021-11-28] MEDS ORDERED: PRAMIPEXOLE DIHYDROCHLORIDE 0.25 MG TABLET PO SCH (22:00)
[2021-11-28] MEDS ORDERED: PRAMIPEXOLE DIHYDROCHLORIDE 0.25 MG TABLET PO ONE (23:00)
[2021-11-28] MEDS: PHENYTOIN 50 MG TAB.CHEW PO SCH (23:06)
[2021-11-28] MEDS: levETIRAcetam XR 750 MG TAB PO SCH (23:06)
[2021-11-29] MEDS: GABAPENTIN 100 MG CAPSULE PO SCH ×2 (05:33→13:46)
[2021-11-29 08:44] VITALS: BP 114/78; PULSE 85; TEMP 98.4
[2021-11-29] MEDS: CEFTRIAXONE 1 GM in DEXTROSE 5%-WATER - 50 ML IVPB SCH (09:56)
[2021-11-29] MEDS: levETIRAcetam XR 750 MG TAB PO SCH (09:57)
[2021-11-29] MEDS: PHENYTOIN 50 MG TAB.CHEW PO SCH (09:57)
[2021-11-29] MEDS: ASPIRIN 81 MG CHEWABLE TABLETS PO SCH (09:57)
[2021-11-29] MEDS: amLODIPine BESYLATE 10 MG TABLET (FP) PO SCH (09:57)
[2021-11-29] MEDS ORDERED: PRAMIPEXOLE DIHYDROCHLORIDE 0.25 MG TABLET PO SCH (10:00)
== END 2021-11-29 15:20 | disposition home or self-care (01) ==
LOC: JER 11:50 → INTOOBSV 14:12 → UNDOADMIN 14:12 → JERBED 14:12 → J7W 11-28 11:37
PROVIDERS: ADMIT Internal Medicine; ATTEND Internal Medicine
DX: M62.81 Muscle weakness (generalized) (principal); I10 Essential (primary) hypertension; E78.5 Hyperlipidemia, unspecified; I69.354 Hemiplegia and hemiparesis following cerebral infarction affecting left non-dominant side; F17.210 Nicotine dependence, cigarettes, uncomplicated; G40.909 Epilepsy, unspecified, not intractable, without status epilepticus; G25.81 Restless legs syndrome; N39.0 Urinary tract infection, site not specified; Z79.82 Long term (current) use of aspirin
CPT/HCPCS: 36415; 70450-TC; 70496-TC; 70498-TC; 71045-TC-FY; 80053; 80061; 80177; 80185; 80307; 81003; 82550; 82553; 82607; 82962; 83036; 84439; 84443; 84484; 85025; 86850; 86900; 86901; 87086; 93005; 93010; 96374; 97116-GP; 97161-GP; 99285-25; C9803-CS; G0378; Q9967; U0003; U0005

== ENCOUNTER 2022-03-06 14:15 | Observation (INO) | payer OTHER ==
[2022-03-06 14:55] VITALS: BMI 21.9
[2022-03-06 16:43] LABS: PH,URINE 5.5 (5.0-8.0); URINE APPEARANCE CLEAR; URINE BILIRUBIN NEGATIVE (NEGATIVE); URINE COLOR YELLOW; URINE GLUCOSE (UA) NEGATIVE (NEGATIVE); URINE KETONE NEGATIVE (NEGATIVE); URINE LEUK ESTERASE NEGATIVE (NEGATIVE); URINE NITRITE NEGATIVE (NEGATIVE); URINE PROTEIN NEGATIVE (NEGATIVE); URINE UROBILINOGEN 0.2 mg/dL (0.2-1.0)
[2022-03-06 17:01] LABS: BASO % 0.7 % (0-2.0); EOS % 1.8 % (0-4.5); HEMATOCRIT 32.3 % (32.4-45.2); HEMOGLOBIN 10.4 GM/dL (10.7-15.3); LYMPH % 40.1 % (8-40); MCH 27.4 pg (25.7-33.7); MEAN CELL VOLUME 85.5 fl (80-96); MEAN PLT VOLUME 8.2 fl (7.5-11.1); MONO % 8.3 % (3.8-10.2); NEUT % 49.1 % (42.8-82.8); PLATELET COUNT 347 10^3/uL (134-434); RBC 3.79 M/mm3 (3.60-5.2); RDW 17.5 % (11.6-15.6); WHITE BLOOD COUNT 4.4 K/mm3 (4.0-10.0)
[2022-03-06 17:29] LABS: CALCIUM 9.2 mg/dL (8.5-10.1)
[2022-03-06 17:30] LABS: ALBUMIN 3.5 g/dl (3.4-5.0); BLOOD UREA NITROGEN 6.7 mg/dL (7-18)
[2022-03-06 17:33] LABS: CREATININE 0.7 mg/dL (0.55-1.3)
[2022-03-06 17:34] LABS: BILIRUBIN,TOTAL 0.4 mg/dL (0.2-1)
[2022-03-06 17:35] LABS: TOT PROT 7.6 g/dl (6.4-8.2)
[2022-03-06] MEDS ORDERED: ATORVASTATIN CA 40 MG TABLET (FP) PO SCH (22:00)
[2022-03-06] MEDS ORDERED: ATORVASTATIN CA 40 MG TABLET (FP) ONE (23:53)
[2022-03-06] MEDS ORDERED: PHENAZOPYRIDINE HCL 100 MG TABLET (FP) ONE (23:53)
[2022-03-06] MEDS: levETIRAcetam XR 750 MG TAB PO SCH (23:57)
[2022-03-06] MEDS: PHENYTOIN NA EXTENDED 100 MG CAPSULE (FP) PO SCH (23:57)
[2022-03-07] MEDS ORDERED: DOCUSATE SODIUM 100 MG CAPSULE (FP) PO PRN (02:36)
[2022-03-07] MEDS ORDERED: ACETAMINOPHEN 1000 MG/100 ML BAG IVPB PRN (02:38)
[2022-03-07] MEDS ORDERED: MELATONIN 5 MG TABLETS PO PRN (02:40)
[2022-03-07] MEDS ORDERED: guaiFENesin/D-M SUGAR-FREE/ACLHOL-FREE 118 ML BOTTLE PO PRN (02:45)
[2022-03-07] MEDS ORDERED: BENZOCAINE/MENTHOL (CHLORASEPTIC ) LOZENGE MM PRN (02:45)
[2022-03-07 03:35] VITALS: RESP 20
[2022-03-07] MEDS ORDERED: BENZOCAINE/MENTH/CETYLPYRD CL 1 EACH LOZENGE MM PRN (08:10)
[2022-03-07] MEDS ORDERED: PNEUMOC 20-VAL CONJ-DIP CRM/PF 0.5 ML SYRINGE IM ONE (10:00)
[2022-03-07] MEDS ORDERED: HEPARIN NA (PORCINE) 5,000 UNITS/ML 1ML VIAL SQ SCH (10:00)
[2022-03-07] MEDS ORDERED: ASPIRIN 81 MG CHEWABLE TABLETS PO SCH (10:00)
[2022-03-07] MEDS: levETIRAcetam XR 750 MG TAB PO SCH (11:17)
[2022-03-07] MEDS: PHENYTOIN NA EXTENDED 100 MG CAPSULE (FP) PO SCH (11:17)
[2022-03-07 14:41] VITALS: BP 109/42; PULSE 86; TEMP 99
[2022-03-08] MEDS ORDERED: ACETAMINOPHEN 325 MG TABLET (FP) PO PRN (02:36)
== END 2022-03-07 17:12 | disposition home or self-care (01) ==
LOC: JER 14:15 → JERBED 18:41 → J6S 03-07 02:25
PROVIDERS: ADMIT Internal Medicine; ATTEND Internal Medicine
PROC: 3E023GC Introduction of Other Therapeutic Substance into Muscle, Percutaneous Approach (ICD-10-PCS; principal; 2022-03-06)
PROC: 3E0234Z Introduction of Serum, Toxoid and Vaccine into Muscle, Percutaneous Approach (ICD-10-PCS; 2022-03-06)
DX: R53.1 Weakness (principal); B97.4 Respiratory syncytial virus as the cause of diseases classified elsewhere; J44.9 Chronic obstructive pulmonary disease, unspecified; E78.5 Hyperlipidemia, unspecified; I10 Essential (primary) hypertension; F32.A Depression, unspecified; R56.9 Unspecified convulsions; R42 Dizziness and giddiness; M75.52 Bursitis of left shoulder; R29.6 Repeated falls; I69.354 Hemiplegia and hemiparesis following cerebral infarction affecting left non-dominant side; W18.39XA Other fall on same level, initial encounter; Y93.89 Activity, other specified; Y92.009 Unspecified place in unspecified non-institutional (private) residence as the place of occurrence of the external cause
CPT/HCPCS: 0241U-QW; 36415; 71045-TC-FY; 80053; 81003; 84484; 85025; 85730; 86850; 86900; 86901; 87086; 90677; 93005; 93010; 96361; 96365; 96366; 96372; 96375; 97116-GP; 97162-GP; 99285-25; G0378; J1644

== ENCOUNTER 2022-05-11 20:16 | Observation (INO) | payer OTHER ==
[2022-05-11 21:16] LABS: BASO % 0.7 % (0-2.0); EOS % 1.2 % (0-4.5); HEMOGLOBIN 11.1 GM/dL (10.7-15.3); LYMPH % 44.5 % (8-40); MCH 27.7 pg (25.7-33.7); MCHC 32.5 g/dl (32.0-36.0); MEAN CELL VOLUME 85.1 fl (80-96); MEAN PLT VOLUME 7.6 fl (7.5-11.1); MONO % 11.9 % (3.8-10.2); NEUT % 41.7 % (42.8-82.8); PLATELET COUNT 326 10^3/uL (134-434); RBC 3.99 M/mm3 (3.60-5.2); RDW 18.1 % (11.6-15.6); WHITE BLOOD COUNT 3.8 K/mm3 (4.0-10.0)
[2022-05-11 21:23] LABS: INR 0.94 (0.83-1.09); PROTHROMBIN TIME (PATIENT) 10.9 SEC (9.7-13.0)
[2022-05-11 21:26] LABS: ACTIVATED PTT 34.5 SECONDS (25.2-36.5)
[2022-05-11 21:38] LABS: ALBUMIN 3.8 g/dl (3.4-5.0); CALCIUM 9.3 mg/dL (8.5-10.1)
[2022-05-11 21:41] LABS: CREATININE 0.7 mg/dL (0.55-1.3)
[2022-05-11 21:43] LABS: BILIRUBIN,TOTAL 0.4 mg/dL (0.2-1); TOT PROT 8.1 g/dl (6.4-8.2)
[2022-05-11 21:47] LABS: BLOOD UREA NITROGEN 7.5 mg/dL (7-18)
[2022-05-12] MEDS ORDERED: SODIUM CHLORIDE 0.9% 500 ML INFUS.BAG IV ONE (00:04)
[2022-05-12] MEDS ORDERED: DOCUSATE SODIUM 100 MG CAPSULE (FP) PO PRN (01:27)
[2022-05-12] MEDS ORDERED: guaiFENesin/D-METHORPHAN HB 10 ML UNIT-DOSE CUPS PO PRN (02:11)
[2022-05-12 06:35] LABS: BASO % 0.7 % (0-2.0); EOS % 2.3 % (0-4.5); HEMATOCRIT 28.9 % (32.4-45.2); HEMOGLOBIN 9.8 GM/dL (10.7-15.3); LYMPH % 48.3 % (8-40); MCH 28.3 pg (25.7-33.7); MCHC 33.8 g/dl (32.0-36.0); MEAN CELL VOLUME 83.8 fl (80-96); MEAN PLT VOLUME 7.8 fl (7.5-11.1); MONO % 12.4 % (3.8-10.2); NEUT % 36.3 % (42.8-82.8); PLATELET COUNT 288 10^3/uL (134-434); RBC 3.45 M/mm3 (3.60-5.2); RDW 18.2 % (11.6-15.6); WHITE BLOOD COUNT 4.1 K/mm3 (4.0-10.0)
[2022-05-12 07:03] LABS: CALCIUM 9.1 mg/dL (8.5-10.1)
[2022-05-12 07:04] LABS: BLOOD UREA NITROGEN 8.7 mg/dL (7-18)
[2022-05-12 07:07] LABS: CREATININE 0.8 mg/dL (0.55-1.3)
[2022-05-12 07:47] VITALS: BMI 23.3
[2022-05-12] MEDS ORDERED: PHENYTOIN 50 MG TAB.CHEW PO SCH (10:00)
[2022-05-12] MEDS: ASPIRIN 81 MG CHEWABLE TABLETS PO SCH (10:37)
[2022-05-12] MEDS: levETIRAcetam XR 750 MG TAB PO SCH ×2 (11:31→22:13)
[2022-05-12] MEDS: ATORVASTATIN CA 40 MG TABLET (FP) PO SCH (22:13)
[2022-05-12] MEDS: MELATONIN 5 MG TABLETS PO PRN (22:16)
[2022-05-13 08:25] LABS: BASO % 0.5 % (0-2.0); EOS % 1.4 % (0-4.5); HEMATOCRIT 30.1 % (32.4-45.2); HEMOGLOBIN 9.9 GM/dL (10.7-15.3); LYMPH % 35.3 % (8-40); MCH 28.3 pg (25.7-33.7); MEAN CELL VOLUME 85.8 fl (80-96); MONO % 12.3 % (3.8-10.2); NEUT % 50.5 % (42.8-82.8); PLATELET COUNT 280 10^3/uL (134-434); RBC 3.51 M/mm3 (3.60-5.2); RDW 17.8 % (11.6-15.6); WHITE BLOOD COUNT 4.3 K/mm3 (4.0-10.0)
[2022-05-13 08:36] LABS: CALCIUM 9.1 mg/dL (8.5-10.1)
[2022-05-13 08:37] LABS: ALBUMIN 3.2 g/dl (3.4-5.0); BLOOD UREA NITROGEN 18.8 mg/dL (7-18)
[2022-05-13 08:40] LABS: CREATININE 0.9 mg/dL (0.55-1.3)
[2022-05-13 08:42] LABS: BILIRUBIN,TOTAL 0.6 mg/dL (0.2-1); TOT PROT 6.9 g/dl (6.4-8.2)
[2022-05-13] MEDS: levETIRAcetam XR 750 MG TAB PO SCH ×2 (09:32→22:54)
[2022-05-13] MEDS: ASPIRIN 81 MG CHEWABLE TABLETS PO SCH (09:32)
[2022-05-13] MEDS ORDERED: MECLIZINE HCL 12.5 MG TABLET PO PRN (11:01)
[2022-05-13] MEDS: ATORVASTATIN CA 40 MG TABLET (FP) PO SCH (22:13)
[2022-05-13] MEDS: MELATONIN 5 MG TABLETS PO PRN (22:13)
[2022-05-13] MEDS: PRAMIPEXOLE DIHYDROCHLORIDE 0.25 MG TABLET PO SCH (22:13)
[2022-05-14] MEDS: levETIRAcetam XR 750 MG TAB PO SCH ×2 (09:37→21:28)
[2022-05-14] MEDS: ASPIRIN 81 MG CHEWABLE TABLETS PO SCH (09:37)
[2022-05-14] MEDS: ENOXAPARIN NA (PORCINE) 40 MG/0.4 ML DISP.SYRIN SQ SCH (09:37)
[2022-05-14] MEDS: PRAMIPEXOLE DIHYDROCHLORIDE 0.25 MG TABLET PO SCH ×2 (09:37→21:28)
[2022-05-14 12:55] LABS: IRON SERUM 25 ug/dL (50-175); TOTAL IRON BINDING CAPACITY 284 ug/dL (250-450)
[2022-05-14] MEDS: MELATONIN 5 MG TABLETS PO PRN (21:27)
[2022-05-14] MEDS: ATORVASTATIN CA 40 MG TABLET (FP) PO SCH (21:27)
[2022-05-14] MEDS: ACETAMINOPHEN 325 MG TABLET (FP) PO PRN (21:28)
[2022-05-15] MEDS: ENOXAPARIN NA (PORCINE) 40 MG/0.4 ML DISP.SYRIN SQ SCH (09:41)
[2022-05-15] MEDS: levETIRAcetam XR 750 MG TAB PO SCH ×2 (09:42→23:39)
[2022-05-15] MEDS: PRAMIPEXOLE DIHYDROCHLORIDE 0.25 MG TABLET PO SCH ×2 (09:42→23:52)
[2022-05-15] MEDS: ASPIRIN 81 MG CHEWABLE TABLETS PO SCH (09:42)
[2022-05-15] MEDS: ACETAMINOPHEN 325 MG TABLET (FP) PO PRN ×2 (11:27→23:39)
[2022-05-15 15:59] LABS: URINE APPEARANCE CLEAR; URINE BILIRUBIN NEGATIVE (NEGATIVE); URINE COLOR YELLOW; URINE GLUCOSE (UA) NEGATIVE (NEGATIVE); URINE KETONE NEGATIVE (NEGATIVE); URINE LEUK ESTERASE NEGATIVE (NEGATIVE); URINE NITRITE NEGATIVE (NEGATIVE); URINE PROTEIN NEGATIVE (NEGATIVE); URINE UROBILINOGEN 0.2 mg/dL (0.2-1.0)
[2022-05-15] MEDS: CYCLOBENZAPRINE HCL 5 MG TABLET PO SCH (17:06)
[2022-05-15] MEDS: ATORVASTATIN CA 40 MG TABLET (FP) PO SCH (23:39)
[2022-05-16] MEDS: levETIRAcetam XR 750 MG TAB PO SCH (10:15)
[2022-05-16] MEDS: CYCLOBENZAPRINE HCL 5 MG TABLET PO SCH (10:15)
[2022-05-16] MEDS: ASPIRIN 81 MG CHEWABLE TABLETS PO SCH (10:15)
[2022-05-16] MEDS: ENOXAPARIN NA (PORCINE) 40 MG/0.4 ML DISP.SYRIN SQ SCH (10:15)
[2022-05-16] MEDS: PRAMIPEXOLE DIHYDROCHLORIDE 0.25 MG TABLET PO SCH (10:15)
[2022-05-16 10:22] VITALS: BP 116/64; PULSE 85; RESP 24; TEMP 98
== END 2022-05-16 14:28 | disposition home or self-care (01) ==
LOC: JER 20:16 → JERBED 05-12 00:12 → J4W 05-12 07:58
PROVIDERS: ADMIT Internal Medicine; ATTEND Internal Medicine
PROC: 3E023GC Introduction of Other Therapeutic Substance into Muscle, Percutaneous Approach (ICD-10-PCS; principal; 2022-05-12)
PROC: 3E0337Z Introduction of Electrolytic and Water Balance Substance into Peripheral Vein, Percutaneous Approach (ICD-10-PCS; 2022-05-12)
DX: E87.1 Hypo-osmolality and hyponatremia (principal); E78.5 Hyperlipidemia, unspecified; J44.9 Chronic obstructive pulmonary disease, unspecified; Z86.73 Personal history of transient ischemic attack (TIA), and cerebral infarction without residual deficits; R53.1 Weakness; R42 Dizziness and giddiness; F31.9 Bipolar disorder, unspecified; F17.210 Nicotine dependence, cigarettes, uncomplicated; R56.9 Unspecified convulsions; M75.52 Bursitis of left shoulder; R29.6 Repeated falls; W18.39XA Other fall on same level, initial encounter; Y93.89 Activity, other specified; Y92.009 Unspecified place in unspecified non-institutional (private) residence as the place of occurrence of the external cause; R55 Syncope and collapse
CPT/HCPCS: 0241U-QW; 36415; 70450-TC; 71045-TC-FY; 72125-TC; 80048; 80053; 80177; 80185; 81003; 82728; 82962; 83540; 83550; 84439; 84443; 84484; 85025; 85610; 85730; 87086; 93005; 93010; 93880-TC; 96372; 97116-GP; 97162-GP; 99285-25; G0378

== ENCOUNTER → 2022-07-18 | Emergency (ER) | payer OTHER ==
[~2022-07-18] MED LIST: ACETAMINOPHEN 1000 MG/100 ML BAG IVPB ONE; ACETAMINOPHEN INJECTION 100 ML IVPB ONE; KETOROLAC TROMETHAMINE 15 MG/ML VIAL IVPUSH ONE; KETOROLAC TROMETHAMINE 15 MG/ML VIAL ONE; METOCLOPRAMIDE HCL INJECTION 10 MG/2 ML VIAL ONE
[2022-07-18 11:52] VITALS: RESP 18; BMI 25.2
[2022-07-18 15:16] LABS: BASO % 0.4 % (0-2.0); EOS % 1.1 % (0-4.5); HEMATOCRIT 29.7 % (32.4-45.2); HEMOGLOBIN 9.7 GM/dL (10.7-15.3); LYMPH % 32.1 % (8-40); MCH 27.4 pg (25.7-33.7); MCHC 32.5 g/dl (32.0-36.0); MEAN CELL VOLUME 84.5 fl (80-96); MEAN PLT VOLUME 7.8 fl (7.5-11.1); MONO % 12.3 % (3.8-10.2); NEUT % 54.1 % (42.8-82.8); PLATELET COUNT 348 10^3/uL (134-434); RBC 3.52 M/mm3 (3.60-5.2); RDW 16.4 % (11.6-15.6); WHITE BLOOD COUNT 4.8 K/mm3 (4.0-10.0)
[2022-07-18 15:23] LABS: INR 1.03 (0.83-1.09); PROTHROMBIN TIME (PATIENT) 11.9 SEC (9.7-13.0)
[2022-07-18 15:25] LABS: ACTIVATED PTT 33.4 SECONDS (25.2-36.5)
[2022-07-18 15:40] LABS: CALCIUM 9.4 mg/dL (8.5-10.1)
[2022-07-18 15:41] LABS: ALBUMIN 3.7 g/dl (3.4-5.0); BLOOD UREA NITROGEN 11.7 mg/dL (7-18)
[2022-07-18 15:44] LABS: CREATININE 0.8 mg/dL (0.55-1.3)
[2022-07-18 15:45] LABS: BILIRUBIN,TOTAL 0.2 mg/dL (0.2-1); TOT PROT 7.8 g/dl (6.4-8.2)
[2022-07-18 15:49] LABS: N-TERMINAL BNP 162.9 pg/ml (5-125)
[2022-07-18 16:20] VITALS: BP 118/104; PULSE 88; TEMP 98.8
== END | disposition home or self-care (01) ==
LOC: JERFT 11:41 → JER 11:41
PROC: 3E033GC Introduction of Other Therapeutic Substance into Peripheral Vein, Percutaneous Approach (ICD-10-PCS; principal; 2022-07-18)
DX: M79.604 Pain in right leg (principal); M79.605 Pain in left leg
CPT/HCPCS: 36415; 80053; 83880; 85025; 85610; 85730; 93970-TC; 96374; 96375; 99284-25

== ENCOUNTER 2022-09-25 05:25 | Day surgery (SDC) | payer OTHER ==
[2022-09-22 09:07] VITALS: BMI 24.1
[2022-09-25] MEDS ORDERED: ONDANSETRON 4 MG/2 ML VIAL IVPUSH PRN (10:17)
[2022-09-25] MEDS ORDERED: LIDOCAINE HCL 1%, 10 MG/ML (10ML VIAL) MDV ONE (10:20)
[2022-09-25] MEDS ORDERED: HEPARIN NA (PORCINE) 5,000 UNITS/ML 1ML VIAL ONE (10:20)
[2022-09-25] MEDS ORDERED: LACTATED RINGERS SOLUTION 1,000 ML IV SCH (10:30)
[2022-09-25] MEDS ORDERED: PHENYTOIN NA EXTENDED 100 MG CAPSULE (FP) PO ONE (10:33)
[2022-09-25] MEDS ORDERED: levETIRAcetam 500 MG/5 ML INJECTION VIAL IVPB ONE (10:45)
[2022-09-25] MEDS ORDERED: MIDAZOLAM HCL 2 MG/2 ML SINGLE DOSE VIAL ONE (11:05)
[2022-09-25] MEDS ORDERED: ceFAZolin SODIUM 1 GM VIAL IVPB ONE (11:15)
[2022-09-25] MEDS ORDERED: PROPOFOL 20 ML ONE ×2 (11:20→11:23)
[2022-09-25] MEDS ORDERED: LIDOCAINE HCL 1%, 10 MG/ML (20ML VIAL) NR ONE ×2 (11:22)
[2022-09-25] MEDS: amLODIPine BESYLATE 10 MG TABLET (FP) PO ONE ×2 (12:55→12:56)
[2022-09-25 14:07] VITALS: RESP 20; TEMP 97.8
[2022-09-25 14:09] VITALS: BP 162/89; PULSE 85
== END 2022-09-25 14:07 | disposition home or self-care (01) ==
LOC: JASU-SURG 05:25
PROVIDERS: ATTEND Surgery Vascular Surgery
PROC: B41DYZZ Fluoroscopy of Aorta and Bilateral Lower Extremity Arteries using Other Contrast (ICD-10-PCS; principal; 2022-09-25 09:30)
DX: I70.212 Atherosclerosis of native arteries of extremities with intermittent claudication, left leg (principal); Z72.0 Tobacco use
CPT/HCPCS: 76000-TC-FY; 94760; C1769; J1644

== ENCOUNTER 2022-10-12 18:00 | Emergency (ER) | payer OTHER ==
[2022-10-12 18:46] VITALS: BP 140/82; PULSE 76; RESP 20; TEMP 99.4; BMI 25.6
== END 2022-10-12 22:23 | disposition home or self-care (01) ==
LOC: JER 18:00
DX: M79.604 Pain in right leg (principal); M79.605 Pain in left leg; R42 Dizziness and giddiness; G89.29 Other chronic pain
CPT/HCPCS: 93971-TC; 99284-25

== ENCOUNTER 2022-10-17 20:57 | Observation (INO) | payer OTHER ==
[2022-10-17 21:12] VITALS: BMI 25.6
[2022-10-17] MEDS ORDERED: ACETAMINOPHEN 1000 MG/100 ML BAG IVPB ONE (21:34)
[2022-10-17] MEDS ORDERED: ACETAMINOPHEN INJECTION 100 ML IVPB ONE (21:44)
[2022-10-17 22:26] LABS: BASO % 0.5 % (0-2.0); EOS % 2.2 % (0-4.5); HEMATOCRIT 30.5 % (32.4-45.2); HEMOGLOBIN 10.2 GM/dL (10.7-15.3); LYMPH % 41.4 % (8-40); MCH 28.9 pg (25.7-33.7); MCHC 33.4 g/dl (32.0-36.0); MEAN CELL VOLUME 86.3 fl (80-96); MEAN PLT VOLUME 8.1 fl (7.5-11.1); MONO % 12.6 % (3.8-10.2); NEUT % 43.3 % (42.8-82.8); PLATELET COUNT 292 10^3/uL (134-434); RBC 3.53 M/mm3 (3.60-5.2); RDW 16.6 % (11.6-15.6); WHITE BLOOD COUNT 4.5 K/mm3 (4.0-10.0)
[2022-10-17 22:44] LABS: POTASSIUM 5.3 mmol/L (3.5-5.1)
[2022-10-17 22:46] LABS: ALBUMIN 3.3 g/dl (3.4-5.0); BLOOD UREA NITROGEN 13.4 mg/dL (7-18); CALCIUM 8.5 mg/dL (8.5-10.1); MAGNESIUM 1.9 mg/dL (1.8-2.4)
[2022-10-17 22:49] LABS: CREATININE 0.9 mg/dL (0.55-1.3)
[2022-10-17 22:51] LABS: BILIRUBIN,TOTAL 0.4 mg/dL (0.2-1); TOT PROT 7.6 g/dl (6.4-8.2)
[2022-10-18 00:07] LABS: CALCIUM 8.8 mg/dL (8.5-10.1)
[2022-10-18 00:11] LABS: CREATININE 0.9 mg/dL (0.55-1.3)
[2022-10-18] MEDS ORDERED: DOCUSATE SODIUM 100 MG CAPSULE (FP) PO PRN (06:14)
[2022-10-18 07:51] LABS: PH,URINE 5.5 (5.0-8.0); URINE APPEARANCE CLEAR; URINE BILIRUBIN NEGATIVE (NEGATIVE); URINE COLOR YELLOW; URINE GLUCOSE (UA) NEGATIVE (NEGATIVE); URINE KETONE NEGATIVE (NEGATIVE); URINE LEUK ESTERASE NEGATIVE (NEGATIVE); URINE NITRITE NEGATIVE (NEGATIVE); URINE PROTEIN NEGATIVE (NEGATIVE); URINE UROBILINOGEN 0.2 mg/dL (0.2-1.0)
[2022-10-18 08:22] LABS: BASO % 0.4 % (0-2.0); EOS % 2.4 % (0-4.5); HEMATOCRIT 32.2 % (32.4-45.2); HEMOGLOBIN 10.5 GM/dL (10.7-15.3); LYMPH % 41.8 % (8-40); MCH 28.6 pg (25.7-33.7); MCHC 32.6 g/dl (32.0-36.0); MEAN CELL VOLUME 87.9 fl (80-96); MEAN PLT VOLUME 8.6 fl (7.5-11.1); MONO % 14.7 % (3.8-10.2); NEUT % 40.7 % (42.8-82.8); PLATELET COUNT 245 10^3/uL (134-434); RBC 3.66 M/mm3 (3.60-5.2); RDW 16.3 % (11.6-15.6)
[2022-10-18 08:23] LABS: PHENCYCLIDINE,URINE NEGATIVE (NEGATIVE)
[2022-10-18 08:24] LABS: METHADONE, UR NEGATIVE (NEGATIVE); OPIATES, URI NEGATIVE (NEGATIVE); URINE BARBITURATES NEGATIVE (NEGATIVE); URINE BENZODIAZEPINES NEGATIVE (NEGATIVE)
[2022-10-18 08:35] LABS: COCAINE, UR NEGATIVE (NEGATIVE); URINE AMPHETAMINES NEGATIVE (NEGATIVE)
[2022-10-18 08:36] LABS: POTASSIUM 4.5 mmol/L (3.5-5.1)
[2022-10-18 08:39] LABS: BLOOD UREA NITROGEN 12.3 mg/dL (7-18); MAGNESIUM 1.9 mg/dL (1.8-2.4)
[2022-10-18 08:42] LABS: CREATININE 0.8 mg/dL (0.55-1.3)
[2022-10-18] MEDS ORDERED: levETIRAcetam 500 MG TABLET (FP) PO ONE (09:31)
[2022-10-18] MEDS ORDERED: amLODIPine BESYLATE 5 MG TABLET (FP) ONE (09:31)
[2022-10-18] MEDS ORDERED: NICOTINE 14 MG/24 HOURS TOPICAL PATCH TD ONE (09:31)
[2022-10-18] MEDS: levETIRAcetam XR 750 MG TAB PO SCH ×2 (09:46→22:34)
[2022-10-18] MEDS: NICOTINE 14 MG/24 HOURS TOPICAL PATCH TD SCH (09:47)
[2022-10-18] MEDS: amLODIPine BESYLATE 5 MG TABLET (FP) PO SCH (09:47)
[2022-10-18] MEDS ORDERED: VIT B12 PO SCH (10:00)
[2022-10-18] MEDS ORDERED: B6 PO SCH (10:00)
[2022-10-18] MEDS ORDERED: [UNRECOGNIZED DRUG - OTHER] PO SCH (10:00)
[2022-10-18] MEDS ORDERED: FOLIC ACID PO SCH (10:00)
[2022-10-18] MEDS: ATORVASTATIN CA 40 MG TABLET (FP) PO SCH (21:53)
[2022-10-18] MEDS: ACETAMINOPHEN 325 MG TABLET (FP) PO PRN (21:53)
[2022-10-19] MEDS: NICOTINE 14 MG/24 HOURS TOPICAL PATCH TD SCH (09:35)
[2022-10-19] MEDS: amLODIPine BESYLATE 5 MG TABLET (FP) PO SCH (09:35)
[2022-10-19] MEDS: levETIRAcetam XR 750 MG TAB PO SCH ×2 (09:35→21:09)
[2022-10-19] MEDS ORDERED: MECLIZINE HCL 12.5 MG TABLET PO PRN (10:15)
[2022-10-19] MEDS: ASPIRIN 81 MG CHEWABLE TABLETS PO SCH (11:55)
[2022-10-19] MEDS: ATORVASTATIN CA 40 MG TABLET (FP) PO SCH (21:09)
[2022-10-19] MEDS: ACETAMINOPHEN 325 MG TABLET (FP) PO PRN (21:10)
[2022-10-20 01:17] VITALS: RESP 16
[2022-10-20] MEDS ORDERED: REGADENOSON 0.4 MG/5 ML PRE-FILLED SYRINGE IVPUSH ONE ×2 (10:04→10:15)
[2022-10-20] MEDS: NICOTINE 14 MG/24 HOURS TOPICAL PATCH TD SCH (12:27)
[2022-10-20] MEDS: levETIRAcetam XR 750 MG TAB PO SCH (12:28)
[2022-10-20] MEDS: ASPIRIN 81 MG CHEWABLE TABLETS PO SCH (12:28)
[2022-10-20] MEDS: amLODIPine BESYLATE 5 MG TABLET (FP) PO SCH (12:29)
[2022-10-20 12:58] VITALS: BP 116/83; PULSE 86; TEMP 98.1
== END 2022-10-20 15:41 | disposition home or self-care (01) ==
LOC: JER 20:57 → JERBED 22:01 → J4S 10-18 21:43 → J4W 10-20 11:46
PROVIDERS: ADMIT Internal Medicine; ATTEND Internal Medicine
PROC: 3E033NZ Introduction of Analgesics, Hypnotics, Sedatives into Peripheral Vein, Percutaneous Approach (ICD-10-PCS; principal; 2022-10-17)
PROC: 3E033GC Introduction of Other Therapeutic Substance into Peripheral Vein, Percutaneous Approach (ICD-10-PCS; 2022-10-17)
DX: R42 Dizziness and giddiness (principal); J44.9 Chronic obstructive pulmonary disease, unspecified; Z99.89 Dependence on other enabling machines and devices; E11.9 Type 2 diabetes mellitus without complications; E78.5 Hyperlipidemia, unspecified; I73.9 Peripheral vascular disease, unspecified; F32.A Depression, unspecified; R53.1 Weakness; T42.0X1A Poisoning by hydantoin derivatives, accidental (unintentional), initial encounter; I69.30 Unspecified sequelae of cerebral infarction; G40.909 Epilepsy, unspecified, not intractable, without status epilepticus; I25.10 Atherosclerotic heart disease of native coronary artery without angina pectoris; I11.9 Hypertensive heart disease without heart failure; I63.9 Cerebral infarction, unspecified; G81.94 Hemiplegia, unspecified affecting left nondominant side; Z87.891 Personal history of nicotine dependence; Z88.0 Allergy status to penicillin
CPT/HCPCS: 36415; 71045-TC-FY; 78452-TC; 80048; 80053; 80177; 80185; 80307; 81003; 83735; 84443; 84484; 85025; 93005; 93010; 93017; 96374; 96375; 99285-25; A9502; G0378; J2785

== ENCOUNTER 2022-11-21 04:26 | Inpatient (IN) | payer OTHER ==
[2022-11-21] MEDS ORDERED: HEPARIN NA (PORCINE) 5,000 UNITS/ML 1ML VIAL ONE ×2 (07:30→11:59)
[2022-11-21] MEDS ORDERED: LIDOCAINE HCL/PF 2% SDV 5ML VIAL ONE (10:44)
[2022-11-21] MEDS ORDERED: PROPOFOL 20 ML ONE (10:44)
[2022-11-21] MEDS ORDERED: ceFAZolin SODIUM 1 GM VIAL ONE (10:44)
[2022-11-21] MEDS ORDERED: MIDAZOLAM HCL 2 MG/2 ML SINGLE DOSE VIAL ONE (10:45)
[2022-11-21] MEDS ORDERED: ROCURONIUM BROMIDE 50 MG/5 ML SYRINGE ONE ×2 (10:45→11:25)
[2022-11-21] MEDS ORDERED: ONDANSETRON 4 MG/2 ML VIAL ONE (11:19)
[2022-11-21] MEDS ORDERED: DEXAMETHASONE SOD PHOSPHATE 4 MG/1 ML VIAL ONE (11:19)
[2022-11-21] MEDS ORDERED: ceFAZolin SODIUM 1 GM VIAL IVPB ONE (11:25)
[2022-11-21] MEDS ORDERED: HEPARIN NA (PORCINE) 5,000 UNITS/ML 1ML VIAL SQ ONE (11:37)
[2022-11-21] MEDS ORDERED: NEOSTIGMINE METHYLSULFATE 0.5 MG/1 ML - 10 ML MDV ONE (12:38)
[2022-11-21] MEDS ORDERED: GLYCOPYRROLATE 0.2 MG/1 ML VIAL ONE (12:38)
[2022-11-21] MEDS ORDERED: POVIDONE-IODINE OINTMENT 10% - 28.4 GM TUBE ONE (12:44)
[2022-11-21] MEDS ORDERED: ACETAMINOPHEN 325 MG TABLET (FP) PO PRN (12:59)
[2022-11-21] MEDS ORDERED: PATIENT'S OWN MEDICATION (NON-FORMULARY) (Meloxicam [Meloxicam] 15 MG Tablet) PO PRN (12:59)
[2022-11-21] MEDS ORDERED: MECLIZINE HCL 12.5 MG TABLET PO PRN (12:59)
[2022-11-21] MEDS ORDERED: ONDANSETRON 4 MG/2 ML VIAL IVPUSH PRN (13:20)
[2022-11-21] MEDS ORDERED: LACTATED RINGERS SOLUTION 1,000 ML IV SCH (13:30)
[2022-11-21] MEDS: morphine SULFATE 4 MG/ML VIAL IVPUSH PRN ×2 (17:30→21:32)
[2022-11-21] MEDS ORDERED: CEFAZOLIN 1 GM in DEXTROSE 5%-WATER - 100 ML IVPB SCH (18:00)
[2022-11-21] MEDS: CEFAZOLIN 1 GM in DEXTROSE 5%-WATER - 50 ML IVPB SCH (18:22)
[2022-11-21] MEDS: ATORVASTATIN CA 40 MG TABLET (FP) PO SCH (21:25)
[2022-11-21] MEDS: PHENYTOIN NA EXTENDED 100 MG CAPSULE (FP) PO SCH (21:31)
[2022-11-21] MEDS ORDERED: PATIENT'S OWN MEDICATION (NON-FORMULARY) (Levetiracetam [Levetiracetam] 750 MG Tablet) PO SCH (22:00)
[2022-11-22] MEDS: CEFAZOLIN 1 GM in DEXTROSE 5%-WATER - 50 ML IVPB SCH (01:01)
[2022-11-22] MEDS: morphine SULFATE 4 MG/ML VIAL IVPUSH PRN ×3 (05:17→20:40)
[2022-11-22] MEDS ORDERED: amLODIPine BESYLATE 10 MG TABLET (FP) PO SCH (10:00)
[2022-11-22] MEDS ORDERED: ENOXAPARIN NA (PORCINE) 40 MG/0.4 ML DISP.SYRIN SQ SCH (10:00)
[2022-11-22] MEDS ORDERED: ASPIRIN 81 MG CHEWABLE TABLETS PO SCH (10:00)
[2022-11-22] MEDS: PHENYTOIN NA EXTENDED 100 MG CAPSULE (FP) PO SCH ×2 (10:01→21:27)
[2022-11-22 10:39] LABS: POTASSIUM 4.2 mmol/L (3.5-5.1)
[2022-11-22 10:41] LABS: CALCIUM 8.8 mg/dL (8.5-10.1)
[2022-11-22 10:42] LABS: ALBUMIN 3.2 g/dl (3.4-5.0); BLOOD UREA NITROGEN 12.6 mg/dL (7-18); MAGNESIUM 1.4 mg/dL (1.8-2.4)
[2022-11-22 10:45] LABS: CREATININE 0.8 mg/dL (0.55-1.3)
[2022-11-22 10:46] LABS: BILIRUBIN,TOTAL 0.5 mg/dL (0.2-1); TOT PROT 6.9 g/dl (6.4-8.2)
[2022-11-22 15:02] VITALS: BMI 26.6
[2022-11-22] MEDS: ATORVASTATIN CA 40 MG TABLET (FP) PO SCH (21:27)
[2022-11-22] MEDS ORDERED: PATIENT'S OWN MEDICATION (NON-FORMULARY) (Meloxicam [Meloxicam] 15 MG) PO PRN (22:23)
[2022-11-22] MEDS ORDERED: MECLIZINE HCL 12.5 MG TABLET PO PRN (22:23)
[2022-11-23] MEDS: morphine SULFATE 4 MG/ML VIAL IVPUSH PRN ×2 (06:29→18:13)
[2022-11-23 08:47] LABS: BLOOD UREA NITROGEN 13.9 mg/dL (7-18); CALCIUM 8.5 mg/dL (8.5-10.1); MAGNESIUM 1.5 mg/dL (1.8-2.4)
[2022-11-23 08:50] LABS: CREATININE 0.7 mg/dL (0.55-1.3); PHOSPHOROUS 3.7 mg/dL (2.5-4.9)
[2022-11-23 08:52] LABS: BILIRUBIN,TOTAL 0.4 mg/dL (0.2-1); TOT PROT 6.4 g/dl (6.4-8.2)
[2022-11-23 09:53] LABS: BASO % 0.4 % (0-2.0); EOS % 0.5 % (0-4.5); HEMOGLOBIN 8.7 GM/dL (10.7-15.3); LYMPH % 19.7 % (8-40); MCH 28.8 pg (25.7-33.7); MCHC 32.3 g/dl (32.0-36.0); MEAN CELL VOLUME 89.4 fl (80-96); MEAN PLT VOLUME 8.9 fl (7.5-11.1); MONO % 15.4 % (3.8-10.2); PLATELET COUNT 281 10^3/uL (134-434); RBC 3.02 M/mm3 (3.60-5.2); RDW 16.4 % (11.6-15.6); WHITE BLOOD COUNT 6.8 K/mm3 (4.0-10.0)
[2022-11-23] MEDS: amLODIPine BESYLATE 10 MG TABLET (FP) PO SCH (10:30)
[2022-11-23] MEDS: ASPIRIN 81 MG CHEWABLE TABLETS PO SCH (10:30)
[2022-11-23] MEDS: PHENYTOIN NA EXTENDED 100 MG CAPSULE (FP) PO SCH ×2 (10:31→21:49)
[2022-11-23] MEDS: ENOXAPARIN NA (PORCINE) 40 MG/0.4 ML DISP.SYRIN SQ SCH (10:32)
[2022-11-23] MEDS: ACETAMINOPHEN 325 MG TABLET (FP) PO PRN (21:49)
[2022-11-23] MEDS: ATORVASTATIN CA 40 MG TABLET (FP) PO SCH (21:49)
[2022-11-24] MEDS: morphine SULFATE 4 MG/ML VIAL IVPUSH PRN ×3 (05:32→17:35)
[2022-11-24] MEDS: ASPIRIN 81 MG CHEWABLE TABLETS PO SCH (09:58)
[2022-11-24] MEDS: PHENYTOIN NA EXTENDED 100 MG CAPSULE (FP) PO SCH ×2 (09:58→21:25)
[2022-11-24] MEDS: amLODIPine BESYLATE 10 MG TABLET (FP) PO SCH (09:58)
[2022-11-24] MEDS: ENOXAPARIN NA (PORCINE) 40 MG/0.4 ML DISP.SYRIN SQ SCH (09:58)
[2022-11-24] MEDS: ATORVASTATIN CA 40 MG TABLET (FP) PO SCH (21:25)
[2022-11-24] MEDS: ACETAMINOPHEN 325 MG TABLET (FP) PO PRN (21:27)
[2022-11-24 21:38] VITALS: RESP 16
[2022-11-25] MEDS: morphine SULFATE 4 MG/ML VIAL IVPUSH PRN (09:35)
[2022-11-25] MEDS: amLODIPine BESYLATE 10 MG TABLET (FP) PO SCH (09:38)
[2022-11-25] MEDS: PHENYTOIN NA EXTENDED 100 MG CAPSULE (FP) PO SCH (09:39)
[2022-11-25] MEDS: ASPIRIN 81 MG CHEWABLE TABLETS PO SCH (09:39)
[2022-11-25] MEDS ORDERED: ENOXAPARIN NA (PORCINE) 40 MG/0.4 ML DISP.SYRIN SQ SCH (10:00)
[2022-11-25] MEDS ORDERED: CLOPIDOGREL BISULFATE 75 MG TABLET (FP) PO SCH ×2 (10:00)
[2022-11-25 14:57] VITALS: BP 142/66; PULSE 82; TEMP 97.2
== END 2022-11-25 17:05 | disposition home or self-care (01) | DRG 253 ==
LOC: J2C 04:26 → JICU 15:28 → J4S 11-22 22:22
PROVIDERS: ADMIT Surgery Vascular Surgery; ATTEND Surgery Vascular Surgery
PROC: 041L4JL Bypass Left Femoral Artery to Popliteal Artery with Synthetic Substitute, Percutaneous Endoscopic Approach (ICD-10-PCS; principal; 2022-11-21 10:00)
DX: E11.51 Type 2 diabetes mellitus with diabetic peripheral angiopathy without gangrene (principal); I69.354 Hemiplegia and hemiparesis following cerebral infarction affecting left non-dominant side; I73.9 Peripheral vascular disease, unspecified; J44.9 Chronic obstructive pulmonary disease, unspecified; I10 Essential (primary) hypertension; E78.5 Hyperlipidemia, unspecified
CPT/HCPCS: 36415; 80053; 82962; 83735; 84100; 85025; 94760; 97116-GP; 97162-GP; C1768; J1644

== ENCOUNTER 2023-02-17 14:57 | Emergency (ER) | payer OTHER ==
[2023-02-17 15:12] VITALS: BMI 25.6
[2023-02-17 16:16] VITALS: TEMP 98.7
[2023-02-17 16:16] LABS: BASO % 0.3 % (0-2.0); EOS % 0.6 % (0-4.5); HEMATOCRIT 32.4 % (32.4-45.2); HEMOGLOBIN 10.8 GM/dL (10.7-15.3); LYMPH % 30.5 % (8-40); MCH 29.1 pg (25.7-33.7); MCHC 33.5 g/dl (32.0-36.0); MEAN CELL VOLUME 86.8 fl (80-96); MEAN PLT VOLUME 7.6 fl (7.5-11.1); MONO % 22.9 % (3.8-10.2); NEUT % 45.7 % (42.8-82.8); PLATELET COUNT 294 10^3/uL (134-434); RBC 3.73 M/mm3 (3.60-5.2); RDW 17.1 % (11.6-15.6); WHITE BLOOD COUNT 5.2 K/mm3 (4.0-10.0)
[2023-02-17 16:22] LABS: INR 1.03 (0.83-1.09)
[2023-02-17 16:25] LABS: ACTIVATED PTT 31.4 SECONDS (25.2-36.5)
[2023-02-17 16:49] LABS: CHLORIDE 104 mmol/L (98-107); POTASSIUM 3.7 mmol/L (3.5-5.1); SODIUM 140 mmol/L (136-145)
[2023-02-17 16:51] LABS: ALBUMIN 3.4 g/dl (3.4-5.0); ANION GAP 7 mmol/L (4-13); BLOOD UREA NITROGEN 8.4 mg/dL (7-18); CALCIUM 8.6 mg/dL (8.5-10.1); CO2 29 mmol/L (21-32); GLUCOSE,RANDOM 110 mg/dL (74-106)
[2023-02-17 16:54] LABS: CREATININE 0.7 mg/dL (0.55-1.3); SGOT/AST 28 U/L (15-37); SGPT/ALT 30 U/L (13-61)
[2023-02-17 16:56] LABS: BILIRUBIN,TOTAL 0.2 mg/dL (0.2-1); TOT PROT 7.3 g/dl (6.4-8.2)
[2023-02-17 16:57] LABS: ALK PHOS 143 U/L (45-117)
[2023-02-17] MEDS ORDERED: levETIRAcetam 500 MG/5 ML INJECTION VIAL IVPB ONE ×2 (17:11)
[2023-02-17 17:37] LABS: CHOLESTEROL 218 mg/dL (50-200)
[2023-02-17 17:38] LABS: LDL CHOLESTEROL (ONLY SJRH) 86 mg/dL (5-100)
[2023-02-17 17:40] LABS: HDL CHOLESTEROL 107 mg/dL (40-60)
[2023-02-17 17:59] VITALS: BP 155/88; PULSE 84; RESP 17
== END 2023-02-17 18:06 | disposition short-term general hospital (02) ==
LOC: JER 14:57
PROC: 3E033NZ Introduction of Analgesics, Hypnotics, Sedatives into Peripheral Vein, Percutaneous Approach (ICD-10-PCS; principal; 2023-02-17)
DX: R41.82 Altered mental status, unspecified (principal); I62.00 Nontraumatic subdural hemorrhage, unspecified
CPT/HCPCS: 0241U-QW; 36415; 70450-TC; 71045-TC-FY; 80053; 80061; 80307; 82962; 83036; 84484; 85025; 85610; 85730; 93005; 93010; 96374; 99285-25

== ENCOUNTER 2023-09-22 12:43 | Emergency (ER) | payer OTHER ==
[2023-09-22 12:51] VITALS: BP 122/74; PULSE 66; RESP 16; TEMP 97.6; BMI 27.4
[2023-09-22] MEDS ORDERED: ACETAMINOPHEN INJECTION 100 ML IVPB ONE (13:50)
[2023-09-22] MEDS: ACETAMINOPHEN 1000 MG/100 ML BAG IVPB ONE (14:39)
[2023-09-22 17:39] LABS: POTASSIUM 4.8 mmol/L (3.5-5.1)
[2023-09-22 17:42] LABS: ALBUMIN 3.5 g/dl (3.4-5.0)
[2023-09-22 17:45] LABS: CREATININE 0.8 mg/dL (0.55-1.3)
[2023-09-22 17:46] LABS: TOT PROT 7.5 g/dl (6.4-8.2)
[2023-09-22 17:47] LABS: BILIRUBIN,TOTAL 0.3 mg/dL (0.2-1)
[2023-09-22 17:52] LABS: BASO % 0.3 % (0-2.0); EOS % 1.5 % (0-4.5); HEMATOCRIT 36.8 % (32.4-45.2); HEMOGLOBIN 12.8 GM/dL (10.7-15.3); LYMPH % 41.8 % (8-40); MCH 32.7 pg (25.7-33.7); MCHC 34.8 g/dl (32.0-36.0); MEAN CELL VOLUME 94.1 fl (80-96); MEAN PLT VOLUME 9.1 fl (7.5-11.1); MONO % 9.8 % (3.8-10.2); NEUT % 46.6 % (42.8-82.8); PLATELET COUNT 283 10^3/uL (134-434); RBC 3.92 M/mm3 (3.60-5.2); WHITE BLOOD COUNT 4.3 K/mm3 (4.0-10.0)
== END 2023-09-22 18:53 | disposition left against medical advice (07) ==
LOC: JER 12:43
DX: R05.1 Acute cough (principal); R09.3 Abnormal sputum; R53.81 Other malaise; R68.83 Chills (without fever); Z20.1 Contact with and (suspected) exposure to tuberculosis; Z20.822 Contact with and (suspected) exposure to COVID-19
CPT/HCPCS: 0241U-QW; 36415; 71045-TC-FY; 80053; 85025; 93005; 93010; 99285-25

== ENCOUNTER 2024-06-11 16:59 | Emergency (ER) | payer OTHER ==
[2024-06-11 17:10] VITALS: BMI 26.9
[2024-06-11 18:29] LABS: ABSOLUTE IMMATURE GRANULOCYTES 0.01 x10^3/uL (0.0-0.031); BASOPHILS # 0.02 x10^3/uL (0.01-0.08); EOSINOPHIL % 0.4 % (0.7-5.8); EOSINOPHILS # 0.02 x10^3/uL (0.04-0.36); HEMATOCRIT 32.8 % (34.1-44.9); MCHC 33.5 g/dl (32.2-35.5); MEAN CELL VOLUME 97.3 fl (79.4-94.8); MEAN PLT VOLUME 9.9 fl (9.4-12.3); MONOCYTE % 11.2 % (4.7-12.5); PLATELET COUNT # 247 x10^3/uL (182-369); RDW 12.1 % (12.4-16.4)
[2024-06-11 18:36] LABS: INR 0.98 (0.83-1.09); PROTHROMBIN TIME (PATIENT) 10.8 SEC (9.7-13.0)
[2024-06-11 18:38] LABS: ACTIVATED PTT 33.3 SECONDS (25.2-36.5)
[2024-06-11 18:54] LABS: POTASSIUM 3.8 mmol/L (3.5-5.1)
[2024-06-11 18:56] LABS: CALCIUM 9.3 mg/dL (8.5-10.1)
[2024-06-11 18:57] LABS: ALBUMIN 4.2 g/dl (3.4-5.0); BLOOD UREA NITROGEN 10.7 mg/dL (7-18)
[2024-06-11 19:00] LABS: CREATININE 0.9 mg/dL (0.55-1.3)
[2024-06-11 19:01] LABS: BILIRUBIN,TOTAL 0.3 mg/dL (0.2-1)
[2024-06-11 19:02] LABS: TOT PROT 7.6 g/dl (6.4-8.2)
[2024-06-11 19:20] VITALS: BP 160/73; PULSE 68; RESP 20; TEMP 98.1
[2024-06-11 20:46] LABS: PH,URINE 6.5 (5.0-8.0); URINE APPEARANCE CLEAR; URINE BILIRUBIN NEGATIVE (NEGATIVE); URINE COLOR YELLOW; URINE GLUCOSE (UA) NEGATIVE (NEGATIVE); URINE KETONE NEGATIVE (NEGATIVE); URINE LEUK ESTERASE NEGATIVE (NEGATIVE); URINE NITRITE NEGATIVE (NEGATIVE); URINE PROTEIN NEGATIVE (NEGATIVE); URINE UROBILINOGEN 0.2 mg/dL (0.2-1.0)
== END 2024-06-11 21:10 | disposition home or self-care (01) ==
LOC: JER 16:59
DX: R42 Dizziness and giddiness (principal); R51.9 Headache, unspecified; R53.83 Other fatigue; R05.9 Cough, unspecified
CPT/HCPCS: 0241U-QW; 36415; 71045-TC-FY; 80053; 81003; 84484; 85025; 85610; 85730; 86850; 86900; 86901; 87086; 93005; 93010; 99285-25

== ENCOUNTER 2024-06-23 11:49 | Emergency (ER) | payer OTHER ==
[2024-06-23 12:09] VITALS: RESP 18; BMI 26.2
[2024-06-23] MEDS ORDERED: ALBUTEROL SO4 2.5/IPRATROPIUM 0.5 INH SOL 3 ML VIAL.NEB. NEB ONE (13:06)
[2024-06-23] MEDS ORDERED: DEXAMETHASONE 4 MG TABLET (FP) ONE ×3 (13:26→13:29)
[2024-06-23] MEDS: DEXAMETHASONE 4 MG TABLET (FP) PO ONE (13:41)
[2024-06-23] MEDS: ALBUTEROL SO4 2.5/IPRATROPIUM 0.5 INH SOL 3 ML VIAL.NEB. NEB ONE (13:41)
[2024-06-23 13:43] LABS: ABSOLUTE IMMATURE GRANULOCYTES 0.02 x10^3/uL (0.0-0.031); BASOPHILS # 0.03 x10^3/uL (0.01-0.08); EOSINOPHILS # 0.05 x10^3/uL (0.04-0.36); HEMATOCRIT 33.5 % (34.1-44.9); MCHC 32.8 g/dl (32.2-35.5); MEAN CELL VOLUME 96.8 fl (79.4-94.8); MEAN PLT VOLUME 10.6 fl (9.4-12.3); MONOCYTE # 0.43 x10^3/uL (0.24-0.86); MONOCYTE % 8.6 % (4.7-12.5); PLATELET COUNT 430 x10^3/uL (182-369); RDW 13.4 % (12.4-16.4)
[2024-06-23 14:13] LABS: POTASSIUM 5.7 mmol/L (3.5-5.1)
[2024-06-23 14:15] LABS: ALBUMIN 3.8 g/dl (3.4-5.0); BLOOD UREA NITROGEN 9.2 mg/dL (7-18); CALCIUM 9.4 mg/dL (8.5-10.1); MAGNESIUM 2.1 mg/dL (1.8-2.4)
[2024-06-23 14:19] LABS: CREATININE 0.9 mg/dL (0.55-1.3)
[2024-06-23 14:20] LABS: BILIRUBIN,TOTAL 0.4 mg/dL (0.2-1)
[2024-06-23 15:18] LABS: POTASSIUM 4.2 mmol/L (3.5-5.1)
[2024-06-23 15:20] LABS: ALBUMIN 3.8 g/dl (3.4-5.0); CALCIUM 9.6 mg/dL (8.5-10.1)
[2024-06-23 15:21] LABS: BLOOD UREA NITROGEN 8.9 mg/dL (7-18)
[2024-06-23 15:24] LABS: CREATININE 0.8 mg/dL (0.55-1.3)
[2024-06-23 15:25] LABS: BILIRUBIN,TOTAL 0.2 mg/dL (0.2-1); TOT PROT 7.3 g/dl (6.4-8.2)
[2024-06-23 17:01] VITALS: BP 144/66; PULSE 74; TEMP 98.5
== END 2024-06-23 19:10 | disposition home or self-care (01) ==
LOC: JER 11:49
PROC: 3E0F7GC Introduction of Other Therapeutic Substance into Respiratory Tract, Via Natural or Artificial Opening (ICD-10-PCS; principal; 2024-06-23)
DX: J44.9 Chronic obstructive pulmonary disease, unspecified (principal); R53.1 Weakness; R06.02 Shortness of breath; R05.9 Cough, unspecified; R68.83 Chills (without fever); R53.83 Other fatigue; R63.0 Anorexia
CPT/HCPCS: 0241U-QW; 36415; 71045-TC-FY; 80053; 83735; 84484; 85025; 86850; 86900; 86901; 93005; 93010; 94640; 99285-25

== ENCOUNTER 2024-08-07 18:55 | Emergency (ER) | payer OTHER ==
[2024-08-07 19:45] VITALS: BP 136/85; RESP 19; TEMP 98.8; BMI 24.1
[2024-08-07 20:53] LABS: ABSOLUTE IMMATURE GRANULOCYTES 0.01 x10^3/uL (0.0-0.031); BASOPHILS # 0.03 x10^3/uL (0.01-0.08); EOSINOPHIL % 1.9 % (0.7-5.8); EOSINOPHILS # 0.07 x10^3/uL (0.04-0.36); HEMATOCRIT 34.9 % (34.1-44.9); HEMOGLOBIN 11.5 g/dL (11.2-15.7); MEAN CELL VOLUME 96.9 fl (79.4-94.8); MEAN PLT VOLUME 10.4 fl (9.4-12.3); MONOCYTE # 0.59 x10^3/uL (0.24-0.86); PLATELET COUNT 238 x10^3/uL (182-369); RDW 12.5 % (12.4-16.4)
[2024-08-07 20:54] LABS: URINE APPEARANCE CLEAR; URINE BILIRUBIN NEGATIVE (NEGATIVE); URINE COLOR YELLOW; URINE GLUCOSE (UA) NEGATIVE (NEGATIVE); URINE KETONE NEGATIVE (NEGATIVE); URINE LEUK ESTERASE NEGATIVE (NEGATIVE); URINE NITRITE NEGATIVE (NEGATIVE); URINE PROTEIN NEGATIVE (NEGATIVE); URINE UROBILINOGEN 0.2 mg/dL (0.2-1.0)
[2024-08-07 21:11] LABS: POTASSIUM 5.1 mmol/L (3.5-5.1)
[2024-08-07 21:13] LABS: CALCIUM 9.5 mg/dL (8.5-10.1)
[2024-08-07 21:14] LABS: BLOOD UREA NITROGEN 12.7 mg/dL (7-18)
[2024-08-07 21:17] LABS: CREATININE 0.9 mg/dL (0.55-1.3)
[2024-08-07 21:19] LABS: BILIRUBIN,TOTAL 0.1 mg/dL (0.2-1)
== END 2024-08-08 01:15 | disposition home or self-care (01) ==
LOC: JER 18:55
DX: R07.9 Chest pain, unspecified (principal); R05.9 Cough, unspecified
CPT/HCPCS: 0241U-QW; 36415; 71275-TC; 74174-TC; 80053; 81003; 83735; 84484; 85025; 85379; 87086; 93005; 93010; 99285-25; Q9967

== ENCOUNTER 2024-10-26 22:29 | Emergency (ER) | payer OTHER ==
[2024-10-26 22:44] VITALS: RESP 17; TEMP 98.1; BMI 24.7
[2024-10-27 05:41] VITALS: BP 146/70; PULSE 64
== END 2024-10-27 05:52 | disposition home or self-care (01) ==
LOC: JER 22:29
DX: F10.929 Alcohol use, unspecified with intoxication, unspecified (principal); R47.81 Slurred speech; W01.198A Fall on same level from slipping, tripping and stumbling with subsequent striking against other object, initial encounter; Y92.009 Unspecified place in unspecified non-institutional (private) residence as the place of occurrence of the external cause; Y93.01 Activity, walking, marching and hiking
CPT/HCPCS: 70450-TC; 72125-TC; 99284-25